=== PATIENT | female | born 1965 | race Caucasian/White ===

== ENCOUNTER → 2024-09-26 | Outpatient (CLI) | payer MEDICARE, MEDICAID, SELFPAY ==
[2024-09-26 13:38] LABS: Basophils # (Auto) 0.1 Thou/mm3 (0.0-0.2); Basophils % (Auto) 1 % (0-2.5); Eosinophils # (Auto) 0.2 Thou/mm3 (0.0-0.5); Eosinophils % (Auto) 3 % (0-10); Hematocrit 26.5 % (36.0-46.0); Immature Granulocytes % (Auto) 1 % (0-0); Immature Granulocytes Auto 0.05 Thou/mm3 (0.00-0.00); Lymphocytes % (Auto) 28 % (10-50); Mean Corpuscular HGB Conc 32.1 g/dl (31.0-37.0); Mean Corpuscular Hemoglobin 32.7 pg (25.0-35.0); Mean Corpuscular Volume 102 fL (80-100); Monocytes % (Auto) 14 % (0-12); Neutrophils # (Auto) 3.9 Thou/mm3 (1.8-7.7); Neutrophils % (Auto) 54 % (37-80); Nucleated Red Blood Cell % 0 /100 WBC (0); Platelet Count 177 Thou/mm3 (140-440); RDW Standard Deviation 60.4 fL (36.4-46.3); White Blood Count 7.2 Thou/mm3 (3.6-11.0)
[2024-09-26 13:46] LABS: Hemoglobin 8.5 g/dL (12.0-16.0)
[2024-09-26 14:03] LABS: Albumin, Serum 4.5 gm/dL (3.4-4.8); Anion Gap 7 (7-16); BUN/Creatinine Ratio 21 Ratio (12-20); Blood Urea Nitrogen 58 mg/dL (9-23); Calcium 9.8 mg/dL (8.3-10.6); Calcium (Corrected) 9.8 mg/dL (8.5-10.1); Chloride 108 mMol/L (98-107); Creatinine (Component) 2.8 mg/dL (0.6-1.3); Glucose 103 mg/dL (74-106); Osmolality,Calculated 295 (275-295); Phosphorous 4.7 mg/dL (2.4-5.1); Potassium 4.9 mMol/L (3.4-5.1); Sodium 140 mMol/L (136-145); eGFR 19 See Note
== END | disposition home or self-care (01) ==
PROVIDERS: PCP Internal Medicine; Referring Provider Internal Medicine; Visit Provider Internal Medicine
DX: I12.9 Hypertensive chronic kidney disease with stage 1 through stage 4 chronic kidney disease, or unspecified chronic kidney disease (principal); E11.22 Type 2 diabetes mellitus with diabetic chronic kidney disease; N18.31 Chronic kidney disease, stage 3a; E11.21 Type 2 diabetes mellitus with diabetic nephropathy; R31.9 Hematuria, unspecified; R80.9 Proteinuria, unspecified
CPT/HCPCS: 36415; 80069; 85025

== ENCOUNTER → 2024-12-01 | Outpatient (CLI) | payer MEDICARE, MEDICAID, SELFPAY ==
[2024-12-01 16:37] LABS: Albumin, Serum 4.2 gm/dL (3.4-4.8); Anion Gap 8 (7-16); BUN/Creatinine Ratio 23 Ratio (12-20); Blood Urea Nitrogen 43 mg/dL (9-23); Calcium 9.8 mg/dL (8.3-10.6); Calcium (Corrected) 9.8 mg/dL (8.5-10.1); Carbon Dioxide 28.3 mMol/L (20.0-31.0); Chloride 110 mMol/L (98-107); Creatinine (Component) 1.9 mg/dL (0.6-1.3); Glucose 74 mg/dL (74-106); Osmolality,Calculated 300 (275-295); Phosphorous 3.8 mg/dL (2.4-5.1); Potassium 4.3 mMol/L (3.4-5.1); Sodium 146 mMol/L (136-145); eGFR 30 See Note
== END | disposition home or self-care (01) ==
LOC: COPL 15:00
PROVIDERS: PCP Family Medicine; Referring Provider Internal Medicine; Visit Provider Internal Medicine
DX: I12.9 Hypertensive chronic kidney disease with stage 1 through stage 4 chronic kidney disease, or unspecified chronic kidney disease (principal); E11.22 Type 2 diabetes mellitus with diabetic chronic kidney disease; N18.31 Chronic kidney disease, stage 3a; E11.21 Type 2 diabetes mellitus with diabetic nephropathy; R80.9 Proteinuria, unspecified
CPT/HCPCS: 36415; 80069

== ENCOUNTER 2025-04-08 12:12 | Inpatient (IN) | payer MEDICARE, MEDICAID, SELFPAY ==
[2025-04-08] VITALS (7 sets, daily range): BP systolic 73–123; BP diastolic 46–76; PULSE 61–83; RESP 15–94; TEMP 36.4–36.6; O2SAT 92–94; BMI 31.5
--- NOTE | 2025-04-08 12:36 | XR_ITS ---
Examination: AP chest single view Technique one AP portable upright chest single view Date and time: April 08, 2025 at 1307 hours Comparison April 11, 2024 INDICATIONS: Fever chills beginning 5 days ago. FINDINGS: Mild enlargement left ventricle Moderate vascular congestion. No lobar pneumonia Moderate elevation right hemidiaphragm IMPRESSION: Moderate vascular congestion No lobar pneumonia
--- NOTE | 2025-04-08 12:36 | EKG_ITS ---
[facility] Test Date: 2025-04-08 Pat Name: FELIPE BILLY Department: Room: - Gender: Female Probation Officer: : 1965 Requested By: Joshua Fenton (KENDALL) Order Number: [id number] Reading MD: Joshua Fenton (SKIN CARE TECHNICIAN) Measurements Intervals [place] Rate: 72 P: 23 MI: 231 QRS: 12 QRSD: 160 T: -12 QT: 426 QTc: 467 Interpretive Statements SINUS RHYTHM WITH FIRST DEGREE AV BLOCK RIGHT BUNDLE BRANCH BLOCK [120+ ms QRS DURATION, UPRIGHT V1, 40+ ms S IN I/aVL/V4/V5/V6] MODERATE T-WAVE ABNORMALITY, CONSIDER LATERAL ISCHEMIA [-0.1+ mV T-WAVE IN I/aVL/V5/V6] Compared to ECG 04/11/2024 09:37:12 First degree AV block now present Atrial fibrillation no longer present T-wave abnormality still present Possible ischemia still present /store/S0/[id number]/ecg/[id number].pdf
--- NOTE | 2025-04-08 12:45 | PC.NURSE ---
Patient from [facility] and taken to room 2 with care provider at bedside, patient to er sent by pmd for BLACK TARRY STOOL , FEVER, CHILLS, ABD PAIN x 5 days, patient develop mentally delayed, care provider, anna at bedside, Patient had low bp in [facility]. Patient placed in [facility] and on CM, IV attempts by RN's at bedside at this time.
--- NOTE | 2025-04-08 12:49 | PC.NURSE ---
Dr. Gottlieb at bedside to assess patient.
[2025-04-08] MEDS: SODIUM CHLORIDE 0.9% 1000 ML 1,000 ML 999 ML IV ×2 (12:55→16:07)
--- NOTE | 2025-04-08 12:56 | PD.EDADULT ---
ED General RME/HPI General Chief complaint: GI Bleed Stated complaint: BLACK TARRY STOOL , FEVER, CHILLS Time Seen by Provider: 04/08/25 12:19 Arrival date/time: 04/08/25 12:12 RME / HPI RME / HPI narrative: DR. GOTTLIEB MAIN ED EVALUATION: 59 year old female presents to the Emergency Department brought in by the retail stock clerk from a half-way with complaints of dark tarry stools/ GI bleed and abdominal pain. Symptoms are moderate. Associated symptoms include nausea, vomiting, fevers, and chills. Patient is on hospice. Patient is hypotensive here at 69/57. PMHx: Recurrent hospitalizations for pneumonia: 04/07/2024-04/10/2024 (Pneumonia/UTI), 03/22/2024-03/23/2024 (Pneumonia), 11/18/2023-11/19/2023 (Pneumonia), 11/02/2023-11/05/2023 (COVID Pneumonia), asthma, primary hypertension, hyperlipidemia, type 2 diabetes (10/2023 A1c 5.6), CKD stage III, chronic anemia, gout, GERD, gastritis, hiatal hernia, cholelithiasis, non-alcoholic fatty liver disease, and idiopathic bladder hemorrhage. Social Hx: No tobacco, alcohol, or substance use. Related Data Home Medications ?Medication ?Instructions ?Recorded ?Confirmed allopurinol 100 mg tablet 100 mg PO QDAY #30 tabs 03/31/14 04/12/24 (Zyloprim) docusate sodium 100 mg capsule 100 mg PO BID #60 caps 03/31/14 04/12/24 (Colace) montelukast 10 mg tablet 10 mg PO HS #30 tabs 03/31/14 04/12/24 (Singulair) potassium chloride 8 mEq 8 meq PO QDAY ##30 03/31/14 04/12/24 capsule,extended release quetiapine 50 mg tablet (Seroquel) 50 mg PO HS #30 tabs 03/31/14 04/12/24 linagliptin 5 mg tablet (Tradjenta) 5 mg PO QAM ##0 03/07/17 04/12/24 loratadine 10 mg tablet 10 mg PO QDAY 04/17/19 04/12/24 lovastatin 40 mg tablet 40 mg PO QPM 04/17/19 04/12/24 vitamin B complex-vitamin C-folic 1 tab PO QAM 04/17/19 04/12/24 acid 0.8 mg tablet (Janae-Steven) cholecalciferol (vitamin D3) 125 5,000 unit PO QDAY 04/04/23 04/12/24 mcg (5,000 unit) tablet (Vitamin D3) furosemide 20 mg tablet (Lasix) 20 mg PO QDAY 11/03/23 04/12/24 ferrous sulfate 325 mg (65 mg 325 mg PO QDAY 11/04/23 04/12/24 iron) tablet lisinopril 40 mg tablet 40 mg PO QDAY 11/04/23 04/12/24 metformin 500 mg tablet 500 mg PO QPM 11/19/23 04/12/24 L.acidophil-L.casei-B.bifid-B.longum-FOS 1 cap PO QDAY 03/23/24 04/12/24 2 billion cell-50 mg capsule (Probiotic Blend) amlodipine 10 mg tablet 10 mg PO DAILY 03/23/24 04/12/24 carbamazepine 100 mg 100 mg PO BID 03/23/24 04/12/24 capsule,extended release [id number] famotidine 40 mg tablet (Pepcid) 40 mg PO QDAY 03/23/24 04/12/24 guaifenesin 600 mg tablet, 600 mg PO BID PRN CHEST CONGESTION 04/11/24 04/11/24 extended release 12 hr (Mucinex) amoxicillin 875 mg-potassium 1 tab PO BID 04/12/24 04/12/24 clavulanate 125 mg tablet Previous Rx's ?Medication ?Instructions ?Recorded pantoprazole 40 mg tablet,delayed 40 mg PO QDAY #30 tabs 11/20/23 release carvedilol 6.25 mg tablet 6.25 mg PO BID #60 tabs 03/23/24 metoclopramide HCl 10 mg tablet 10 mg PO HS 30 days #30 tabs 04/17/24 metoclopramide HCl 5 mg tablet 5 mg PO QAM 30 days #30 tabs 04/17/24 Allergies Allergy/AdvReac Type Severity Reaction Status Date / Time No Known Allergies Allergy Verified 04/08/25 12:16 Review of Systems Review of Systems Systems Reviewed: All systems reviewed, normal except as documented Narrative Review of Systems: Constitutional: DENIES: fevers; Eyes: DENIES: loss of vision; Head/Ear/Nose: DENIES: loss of hearing. Throat: DENIES: dysphagia. Cardiovascular: DENIES: chest pain, dyspnea, or syncope. Respiratory: DENIES: shortness of breath; Gastrointestinal: POSITIVES: dark tarry stools/ GI bleed, abdominal pain, nausea, vomiting, fevers, chills Genitourinary: DENIES: dysuria (painful or difficult urination); Musculoskeletal: DENIES: arthralgia (pain in a joint); Skin: DENIES: rash; Neurological: DENIES: loss of function or movement; Psychiatric: DENIES: recent major life stressor, emotional problem, illicit drug use or abuse; Endocrinology: DENIES: weight change,; Hematologic/Lymphatic: DENIES: abnormal bruising. Allergic/Immunologic: DENIES: urticaria (hives). Past Medical History Past Medical History CARDIAC: Positive Cardiac Disorders, Hypercholesterolemia, Congestive Heart Failure, Edema and Hypertension RESPIRATORY: Positive Asthma and Pneumonia GASTROINTESTINAL: Positive Gastroesophageal Reflux Disease GENITOURINARY: Positive Genitourinary Disorders and Renal Disease MUSCULOSKELETAL: Positive Arthritis, Osteoporosis and Gout ENDOCRINE: Positive Diabetes Mellitus Type 2 HEMATOLOGIC: Positive Anemia OTHER HISTORY: Positive Hospitalization, Down Syndrome, Developmental Delay and Cancer Family History FAMILY HISTORY: Positive Family Cardiac Disorders and Family Cancer Surgical History SURGICAL: Positive Endocrine Surgery and Hysterectomy Social History SMOKING STATUS: Never smoker SUBSTANCE USE: does not use ALCOHOL: Never ED Exam Narrative Physical exam: Physical Exam: General: The vital signs were reviewed. Patient initially hypotensive with systolics in the 70 and 80 range on arrival the patient is non-toxic, in no apparent distress and appears healthy with a patent airway, no respiratory distress and has no apparent circulatory problems. Head & Scalp: Normocephalic, atraumatic. Face: Appears normal and is without lesions, deformity. Ears: Left external pinna appears normal. Right external pinna appears normal. Eyes: The sclera is anicteric. No obvious photophobia. The Left and Right Orbit/Lid/Conjunctiva appears normal without swelling, discoloration or injection. Nose: The nose is without deformity, discharge or tenderness; Throat: Appears normal. The mucous membranes are pink and moist without exudates, redness or mass seen. The tongue appears normal. Neck: The neck is supple and no apparent mass or adenopathy. Chest: The chest wall is normal in size and symmetry and has no chest wall tenderness or crepitus. The patient displays normal ventilator effort without retractions, accessory muscle use and has adequate air movement bilaterally with no wheezes and no rales. Cardiovascular: Regular rate and rhythm; No murmurs, rubs, or gallops; Gastrointestinal: The abdomen appears normal. No obvious hernias or mass. The abdomen is soft and benign, non-distended, with no pain, no guarding and no rebound tenderness. Bowel sounds are present and normal sounding. No CVA tenderness. Genitourinary: Rectal inspection is normal there is black discoloration rectal exam was done there is no mass melanotic appearing and guaiac positive. Back/Spine: Normal inspection Extremities/Musculoskeletal/lymphatic: The bilateral upper and lower extremities are warm. There is no evidence of arterial insufficiency. There is no evidence of venous insufficiency/edema. The patient spontaneously moves bilateral upper and lower extremities with no pain and no limitation of movement. There is no apparent, injury or trauma. Skin: The skin is warm, dry and intact. No rashes. No petechia. No purpura. No abnormal bruising. The color is appropriate with no cyanosis. Mental status/Psychiatric: Mental status is appropriate for age. The patient has no apparent delusions, visual hallucinations, no apparent audible hallucinations. The patient has no apparent suicidal thoughts/ideation and no apparent homicidal thoughts/ideation. Neurological: The patient is awake, alert, interactive, cordial, cooperative and usual self whose development delayed but is smiles and cordial and interacts with her caregiver The patient follows commands and answers historical question with no impairment. There is no visual disturbance apparent. The pupils are equal and reactive bilaterally with normal eye movements and no diplopia The bilateral upper and lower extremities have normal strength, normal range of motion and normal functioning. The gait, station and balance not tested due to acuity Course Quality Measures none Orders Category Date Time Status Admit to Inpatient Status Routine Admission 04/08/25 15:13 Active Patient Condition Routine Admission 04/08/25 15:12 Ordered Bedside COVID-19 Antigen Test NOW Care 04/08/25 12:36 Active Bedside Influenza A&B Antigen Test NOW Care 04/08/25 12:36 Completed Aviation Electronic Warfare Operator Q4H START 00 Care 04/08/25 12:51 Active EKG (ED ONLY) *Do not use* NOW Care 04/08/25 12:36 Completed Flu & Pneumonia Vaccine Screen ONCE Care 04/08/25 15:12 Active In and Out Catheter X1 Care 04/08/25 12:58 Active Insert IV NOW Care 04/08/25 12:36 Active Notify provider NEEDED Care 04/08/25 15:12 Active Consult to Gastroenterology Stat Cons 04/08/25 14:45 Ordered Diet Low Sodium (2gm) Diet 04/08/25 Dinner Active EKG (ED Only) Stat Exams 04/08/25 12:36 Draft XR chest 1V portable Stat Exams 04/08/25 12:36 Completed B-Type Natriuretic Peptide Stat Lab 04/08/25 13:00 Completed Blood Culture (Lab) Stat Lab 04/08/25 13:15 Received CBC AM DRAW Lab 04/09/25 05:00 Ordered CBC AM DRAW Lab 04/10/25 05:00 Ordered CBC AM DRAW Lab 04/11/25 05:00 Ordered CBC AM DRAW Lab 04/12/25 05:00 Ordered CBC AM DRAW Lab 04/13/25 05:00 Ordered CBC Stat Lab 04/08/25 13:00 Completed CBC Stat Lab 04/08/25 14:26 Completed Comprehensive Metabolic Panel AM DRAW Lab 04/09/25 05:00 Ordered Comprehensive Metabolic Panel AM DRAW Lab 04/10/25 05:00 Ordered Comprehensive Metabolic Panel AM DRAW Lab 04/11/25 05:00 Ordered Comprehensive Metabolic Panel AM DRAW Lab 04/12/25 05:00 Ordered Comprehensive Metabolic Panel AM DRAW Lab 04/13/25 05:00 Ordered Comprehensive Metabolic Panel Stat Lab 04/08/25 13:00 Completed Lactate (Lactic Acid) Stat Lab 04/08/25 13:00 Completed Lipase Stat Lab 04/08/25 13:00 Completed Magnesium AM DRAW Lab 04/09/25 05:00 Ordered Magnesium AM DRAW Lab 04/10/25 05:00 Ordered Magnesium AM DRAW Lab 04/11/25 05:00 Ordered Magnesium AM DRAW Lab 04/12/25 05:00 Ordered Magnesium AM DRAW Lab 04/13/25 05:00 Ordered Occult Blood, Stool (LAB) Stat Lab 04/08/25 15:05 Ordered PT [Prothrombin Time with INR] Stat Lab 04/08/25 13:00 Completed PTT [Partial Thromboplastin Time] Stat Lab 04/08/25 13:00 Completed Phosphorous AM DRAW Lab 04/09/25 05:00 Ordered Phosphorous AM DRAW Lab 04/10/25 05:00 Ordered Phosphorous AM DRAW Lab 04/11/25 05:00 Ordered Phosphorous AM DRAW Lab 04/12/25 05:00 Ordered Phosphorous AM DRAW Lab 04/13/25 05:00 Ordered Procalcitonin Stat Lab 04/08/25 13:00 Completed Sputum Culture and Gram Stain Routine Lab 04/08/25 15:28 Received Thyroid Stimulating Hormone AM DRAW Lab 04/09/25 05:00 Ordered Troponin I Stat Lab 04/08/25 13:00 Completed Type and Screen Stat Lab 04/08/25 13:00 Completed Urinalysis Stat Lab 04/08/25 16:30 Completed Urine Culture Stat Lab 04/08/25 15:05 Received VBG [Venous Blood Gas] Stat Lab 04/08/25 13:00 Completed Acetaminophen Tab [Tylenol Tab] Med 04/08/25 15:12 Active 1,000 mg PO Q6H PRN Acetaminophen Tab [Tylenol Tab] Med 04/08/25 15:12 Active 650 mg PO Q6H PRN Azithromycin Inj [Zithromax Inj] 500 mg Med 04/09/25 09:00 Pending Sodium Chloride 0.9% 250 ml [Ns] 250 ml IV QDAY Docusate Sod [Colace] Med 04/09/25 09:00 Active 100 mg PO QDAY Enoxaparin [Lovenox] Med 04/09/25 09:00 Active 40 mg SC QDAY Ondansetron Inj [Zofran Inj] Med 04/08/25 15:12 Active 4 mg IV Q6H PRN Pantoprazole Inj [Protonix Inj] Med 04/09/25 09:00 Active 40 mg IVP QDAY Pantoprazole Inj [Protonix Inj] Med 04/08/25 14:44 Discontinued 40 mg IVP X1 ONE Senna [Senokot] Med 04/09/25 09:00 Active 1 tab PO QDAY Sodium Chloride 0.9% 1000 ml [Ns] 1,000 ml Med 04/08/25 12:36 Discontinued IV 999 mls/hr Sodium Chloride 0.9% 1000 ml [Ns] 1,000 ml Med 04/08/25 12:53 Discontinued IV 999 mls/hr Sodium Chloride Rt Christine 10% [NS Rt Christine 10%] Med 04/08/25 15:12 Discontinued 5 ml INH X1 ONE cefTRIAXone/D5w 1gm IV premix [Rocephin/D5w 1gm IV Med 04/08/25 15:16 Active premix] 1 gm in 50 ml IV QDAY Code Status Routine Oth 04/08/25 15:12 Ordered Oxygen Delivery DAILY RT 04/08/25 15:13 Active Sputum Induction PRN RT 04/08/25 15:30 Ordered Vital Signs Vital signs: Vital Signs Temperature 97.6 F 04/08/25 12:31 Pulse Rate 61 04/08/25 12:31 Respiratory Rate 18 04/08/25 12:31 Blood Pressure 73/46 L 04/08/25 12:31 Pulse Oximetry (%) 92 L 04/08/25 12:31 Oxygen Delivery Method Room Air 04/08/25 12:31 Critical Care Time Critical Care Time Critical Care Time: Yes Total Critical Care Time (min.): 45 Attestation: The high probability of sudden, clinically significant deterioration in the patient?s condition required the highest level of my preparedness to intervene urgently. The services I provided to this patient were to treat and/or prevent clinically significant deterioration. Services included the following: chart data review, reviewing nursing notes and/or old charts, documentation time, framing consultant collaboration regarding findings and treatment options, medication orders and management, direct patient care, vital sign assessments and ordering, interpreting and reviewing diagnostic studies and lab tests. Aggregate critical care time includes only time during which I was engaged in work directly related to the patient?s care, as described above, whether at bedside or elsewhere in the Emergency Department. It did not include time spent performing other reported procedures or the services of residents, students, nurses or physician assistants. Discharge Plan Plan Patient Disposition: Admit Acute Care w/in Hospital Discharge Disposition comment: Hospitalist to admit Dr. Peterson to consult Problem List Clinical Impression: Acute renal failure, GI (gastrointestinal bleed), Developmental delay, mild MDM Narrative MDM hospital course: I, Kim Moreno, am scribing for and in the presence of Dr. Gottlieb. The patient is 59-year-old developmentally delayed who comes in hypotensive passing black stools for several days with no known history fever injury or trauma. She has a history of upper endoscopy past year for esophageal stricture with Dr. Peterosn. Rectal exam today reveals dark stool guaiac positive on the card. Patient has labs today has a chronic anemia but her hemoglobin is little bit lower than baseline at 8.5 there is a second H&H pending at this time. PT/INR within normal limits venous blood gas pH is 747 pCO2 of 30 electrolytes are within normal except the potassium is low at 3.3 kidney functions worse at BUN 45 creatinine 4.0 consistent with acute renal failure lactic acid is 1.3 procalcitonin is elevated 8.02. Chest x-ray has no obvious pneumonia heart is a little enlarged. She is alert awake smiling. She had no more melanotic stool while she was here blood pressures came up into the 100 after liter of fluid. Contact Dr. Peterson and he will be consulting for gastroenterology spoke with Dr. Garcia the resident on-call and they will be admitting for hypotension and acute kidney injury. Clinical Information Provided by patient other: caregiver Medical Records Reviewed [facility] (Reviewed last admission discharge dated 04/18/24, patient admitted for the following: Cognitive developmental delay.) Meds/Rx Considered, not Ordered None Labs/Rad/Tests considered, not Ordered None Chronic Illness/Social Conditions Add or document further as needed: Recurrent hospitalizations for pneumonia: 04/07/2024-04/10/2024 (Pneumonia/UTI), 03/22/2024-03/23/2024 (Pneumonia), 11/18/2023-11/19/2023 (Pneumonia), 11/02/2023-11/05/2023 (COVID Pneumonia), asthma, primary hypertension, hyperlipidemia, type 2 diabetes (10/2023 A1c 5.6), CKD stage III, chronic anemia, gout, GERD, gastritis, hiatal hernia, cholelithiasis, non-alcoholic fatty liver disease, and idiopathic bladder hemorrhage. EKG Interpretation EKG #1: Date/time of EK04/08/25 1352 hours EKG interpretation: Interpreted by me: sinus rhythm, rate 72, no STEMI Lab Interpretation Labs: see narrative above Imaging Imaging interpretation: see narrative above Radiology reports / interpretation(s): Procedure(s): XR chest 1V portable Accession Number(s): [id number] cc: Eliceo (KENDALL),Joshua ARGUETA; Hector Escalante MD~ Examination: AP chest single view Technique one AP portable upright chest single view Date and time: April 08, 2025 at 1307 hours Comparison April 11, 2024 INDICATIONS: Fever chills beginning 5 days ago. FINDINGS: Mild enlargement left ventricle Moderate vascular congestion. No lobar pneumonia Moderate elevation right hemidiaphragm IMPRESSION: Moderate vascular congestion No lobar pneumonia Dictated By: Hector Escalante MD Medication Administration(s) Medication Administration History Acetaminophen (Acetaminophen 325 Mg Tablet) 650 mg PO Q6H PRN PRN Reason: Fever >101.5 Stop: 05/08/25 15:11 Acetaminophen (Acetaminophen 325 Mg Tablet) 1,000 mg PO Q6H PRN PRN Reason: PAIN SCALE 1-3 (mild Stop: 05/08/25 15:11 Dextrose (Dextrose 50%-Water Inj 50 Ml Syringe) 25 ml IV Q15MIN PRN PRN Reason: BG 50-70 responsive npo pt Stop: 05/08/25 15:18 Dextrose (Dextrose 50%-Water Inj 50 Ml Syringe) 50 ml IV Q15MIN PRN PRN Reason: BG <50 OR BG <70 & pt unresponsive Stop: 05/08/25 15:18 Docusate Sodium (Docusate Sod 100 Mg Capsule) 100 mg PO QDAY LANDON; Protocol Stop: 05/09/25 08:59 Enoxaparin Sodium (Enoxaparin Sod Inj 40 Mg/0.4 Ml Syringe) 40 mg SC QDAY LANDON Stop: 04/23/25 08:59 Glucagon (Glucagon Inj 1 Mg Vial) 1 mg IM Q15MIN PRN PRN Reason: BG <70, and no IV access Ceftriaxone Sodium/Dextrose (Rocephin/D5w 1gm Iv Premix) 1 gm in 50 mls @ 100 mls/hr IV QDAY LANDON Stop: 04/15/25 15:15 Last Infusion: 04/08/25 16:45 Dose: Infused Documented By: Admin: 04/08/25 16:10 Dose: 100 mls/hr Documented By: DARSHAN Azithromycin 500 mg/ Sodium (Chloride) 250 mls @ 250 mls/hr IV QDAY LANDON Stop: 04/16/25 08:59 Sodium Chloride (Ns) 1,000 mls @ 60 mls/hr IV .[id number] LANDON Stop: 04/09/25 08:15 Insulin Human Lispro (Insulin Lispro (Admelog) 1 Unit/0.01 Ml Unit) 0 unit SC AC LANDON; Protocol Stop: 05/08/25 16:59 Ondansetron HCl (Ondansetron Inj 2 Mg/Ml Inj 2 Ml) 4 mg IV Q6H PRN; Protocol PRN Reason: NAUSEA OR VOMITING Stop: 05/08/25 15:11 Pantoprazole Sodium (Pantoprazole Inj 40 Mg Vial) 40 mg IVP QDAY LANDON Stop: 05/09/25 08:59 Sennosides (Senna Tablet) 1 tab PO QDAY LANDON; Protocol Stop: 05/09/25 08:59 Discontinued Medications Sodium Chloride (Ns) 1,000 mls @ 999 mls/hr IV .Q1H1M ONE Stop: 04/08/25 13:36 Last Infusion: 04/08/25 14:07 Dose: Infused Documented By: Admin: 04/08/25 12:55 Dose: 999 mls/hr Documented By: DARSHAN Sodium Chloride (Ns) 1,000 mls @ 999 mls/hr IV .Q1H1M ONE Stop: 04/08/25 13:53 Last Admin: 04/08/25 13:41 Dose: Not Given Documented By: DARSHAN Non-Admin Reason: Cancelled by Provider Sodium Chloride (Ns) 1,000 mls @ 999 mls/hr IV .Q1H1M ONE Stop: 04/08/25 16:18 Last Infusion: 04/08/25 17:25 Dose: Infused Documented By: Admin: 04/08/25 16:07 Dose: 999 mls/hr Documented By: DARSHAN Azithromycin 500 mg/ Sodium (Chloride) 250 mls @ 250 mls/hr IV X1 ONE Stop: 04/08/25 16:29 Pantoprazole Sodium (Pantoprazole Inj 40 Mg Vial) 40 mg IVP X1 ONE Stop: 04/08/25 14:45 Last Admin: 04/08/25 16:05 Dose: 40 mg Documented By: DARSHAN Sodium Chloride (Sodium Chloride Rt 10% 15 Ml Nebu) 5 ml INH X1 ONE Stop: 04/08/25 15:13 Last Admin: 04/08/25 16:16 Dose: Not Given Documented By: SHENA Non-Admin Reason: Other, see note Consultations/Discussions re: Management Consult #1: Date/time: 04/08/25 2:43 pm Physician, specialty, service, details: Discussed test HPI, PMHx, lab, radiology results and/or management with Dr. Peterson. Will consult an admission to the hospitalist. Consult #2: Date/time: 04/08/25 2:50 pm Physician, specialty, service, details: Discussed test HPI, PMHx, lab, radiology results and/or management with resident working with the hospitalist. Will admit for further evaluation and management. Accepts patient for admission. Diagnosis Differential diagnosis: sepsis, upper GI bleed, lower GI bleed Most likely dx, and/or detailed dx discussion: Acute renal failure GI bleed Developmental delay, mild Dispositon Disposition: Admit
[2025-04-08 13:12] LABS: Base Excess, Venous -2 (-3-3); Lactate (Lactic Acid) 1.3 mMol/L (0.4-2.0); O2 Saturation, Venous 99 % (96-97); PCO2, Venous 30 mmHg (36-56); PO2, Venous 100 mmHg (15-58); pH, Venous 7.47 (7.33-7.66)
[2025-04-08 13:14] LABS: Basophils % (Auto) 0 % (0-2.5); Eosinophils % (Auto) 0 % (0-10); Hematocrit 26.3 % (36.0-46.0); Hemoglobin 8.9 g/dL (12.0-16.0); Immature Granulocytes % (Auto) 1 % (0-0); Immature Granulocytes Auto 0.09 Thou/mm3 (0.00-0.00); Lymphocytes # (Auto) 1.1 Thou/mm3 (1.0-4.8); Lymphocytes % (Auto) 11 % (10-50); Mean Corpuscular HGB Conc 33.8 g/dl (31.0-37.0); Mean Corpuscular Hemoglobin 31.9 pg (25.0-35.0); Mean Corpuscular Volume 94 fL (80-100); Monocytes # (Auto) 1.3 Thou/mm3 (0.0-0.8); Monocytes % (Auto) 14 % (0-12); Neutrophils # (Auto) 7.2 Thou/mm3 (1.8-7.7); Neutrophils % (Auto) 74 % (37-80); Nucleated Red Blood Cell % 0 /100 WBC (0); Platelet Count 211 Thou/mm3 (140-440); RDW Standard Deviation 54.6 fL (36.4-46.3); Red Blood Count 2.79 Miln/mm3 (4.00-5.20); White Blood Count 9.7 Thou/mm3 (3.6-11.0)
[2025-04-08 13:32] LABS: Partial Thromboplastin Time 30.8 Seconds (22.0-36.0); Prothrombin Time 11.3 Seconds (9.0-12.2)
[2025-04-08 13:50] LABS: B-Type Natriuretic Peptide 40 pg/mL (0-100)
[2025-04-08 14:08] LABS: Alanine Aminotransferase 16 U/L (10-49); Albumin, Serum 3.9 gm/dL (3.4-4.8); Albumin/Globulin Ratio 1.3 (1.2-2.2); Alkaline Phosphatase 59 U/L (46-116); Anion Gap 13 (7-16); Aspartate Amino Transferase 20 U/L (0-34); BUN/Creatinine Ratio 11 Ratio (12-20); Bilirubin,Total < 0.2 mg/dL (0.3-1.2); Blood Urea Nitrogen 45 mg/dL (9-23); Calcium 9.1 mg/dL (8.3-10.6); Calcium (Corrected) 9.2 mg/dL (8.5-10.1); Chloride 105 mMol/L (98-107); Estimated Creatinine Clearance 14.9 mL/min (>60); Globulin 2.9 gm/dL (2.3-3.5); Glucose 87 mg/dL (74-106); Lipase 38 U/L (12-53); Osmolality,Calculated 295 (275-295); Potassium 3.3 mMol/L (3.4-5.1); Procalcitonin 8.02 ng/ml (0.0-0.49); Sodium 143 mMol/L (136-145); Total Protein 6.8 gm/dL (5.7-8.2); Troponin I 0.029 ng/mL (0.0-0.045); eGFR 12 See Note
[2025-04-08 14:38] LABS: Basophils % (Auto) 0 % (0-2.5); Eosinophils % (Auto) 0 % (0-10); Immature Granulocytes % (Auto) 1 % (0-0); Immature Granulocytes Auto 0.09 Thou/mm3 (0.00-0.00); Lymphocytes # (Auto) 1.1 Thou/mm3 (1.0-4.8); Lymphocytes % (Auto) 13 % (10-50); Mean Corpuscular HGB Conc 33.8 g/dl (31.0-37.0); Mean Corpuscular Hemoglobin 32.1 pg (25.0-35.0); Mean Corpuscular Volume 95 fL (80-100); Monocytes # (Auto) 1.2 Thou/mm3 (0.0-0.8); Monocytes % (Auto) 14 % (0-12); Neutrophils # (Auto) 6.2 Thou/mm3 (1.8-7.7); Neutrophils % (Auto) 72 % (37-80); Nucleated Red Blood Cell % 0 /100 WBC (0); Platelet Count 194 Thou/mm3 (140-440); RDW Standard Deviation 54.2 fL (36.4-46.3); Red Blood Count 2.52 Miln/mm3 (4.00-5.20); White Blood Count 8.6 Thou/mm3 (3.6-11.0)
[2025-04-08 14:58] LABS: Hemoglobin 8.1 g/dL (12.0-16.0)
--- NOTE | 2025-04-08 15:25 | PD.RESHP ---
Documentation for date of: 04/08/25 HPI History of Present Illness Chief complaint: fever History of present illness: 59-year-old female on hospice with past medical history of developmental delay, asthma, hypertension, hyperlipidemia, type 2 diabetes, CKD seen by Dr. Mendez, chronic anemia, gout, GERD history of recurrent pneumonias and UTIs who presented to the ED due to fever chills. Per the caregiver patient was having fevers a couple days ago and hospice agency put the patient on Bactrim. Subsequently patient continued to have fevers and watery diarrhea (nonbloody) and went to her PCP was told her blood pressure was low and brought here to the ER. Denies chest pain, shortness of breath, nausea, vomiting, recent travel, sick contact. f ED course: ED vitals: BP 73/46, HR 61, RR 18, O2 sat 92% on room air ED labs: Normocytic anemia, hypokalemia, BUN 45, creatinine 4.0, GFR 12, procalcitonin 8.0 EKG shows sinus rhythm, chest x-ray shows vascular congestion no lobar pneumonia PMHx: As above SX Hx: None Social Hx: Denies cigarette use, denies alcohol use, denies illicit substances including THC FH X: Unknown Review of Systems Review of Systems Systems Reviewed: All systems reviewed, normal except as documented Narrative Review of Systems: all 12 systems reviewed and are normal unless stated in the HPI Exam Vital Signs Temp Pulse Resp BP Pulse Ox O2 Del Method 97.6 F 72 24 H 102/57 L 94 L Room Air 04/08/25 12:31 04/08/25 13:30 04/08/25 13:30 04/08/25 13:30 04/08/25 13:30 04/08/25 13:30 Narrative Exam Physical Exam GENERAL: NAD, AAOx3, developmentally delayed HEENT: Moist mucosa. Eyes open, symmetrical, & clear CARDIO: Heart RRR, no obvious murmurs PULM: Coughing, decreased breath sounds on the left GI: Abdomen soft, nondistended, no pain on palpation. BSx4 SKIN/MSK/EXT: No wounds/rashes/edema/amputations, no pain on palpation. Pedal pulses present B/L NEURO: AAOx3, no focal neuro deficits, able to move all 4 extremities Results: Labs 04/09/25 08:22 04/09/25 08:22 Labs: Short CBC 04/08/25 04/08/25 Range/Units 13:00 14:26 WBC 9.7 8.6 (3.6-11.0) Thou/mm3 Hgb 8.9 L 8.1 L (12.0-16.0) g/dL Hct 26.3 L 24.0 L (36.0-46.0) % Plt Count 211 194 (140-440) Thou/mm3 BMP 04/08/25 13:00 Sodium 143 Potassium 3.3 L Chloride 105 Carbon Dioxide 25.0 BUN 45 H Creatinine 4.0 H Glucose 87 Calcium 9.1 Cardiac Enzymes 04/08/25 Range/Units 13:00 Troponin I 0.029 (0.0-0.045) ng/mL Liver Function 04/08/25 Range/Units 13:00 Total Bilirubin < 0.2 L (0.3-1.2) mg/dL AST 20 (0-34) U/L ALT 16 (10-49) U/L Alkaline Phosphatase 59 (46-116) U/L Albumin 3.9 (3.4-4.8) gm/dL ABG Interpretation ABG results: 04/08/25 13:00 VBG pH 7.47 VBG pCO2 30 L VBG pO2 100 H VBG Base Excess -2 Quality Measures Quality Measures none Medications Home Medications and Allergies Home Medications ?Medication ?Instructions ?Recorded ?Confirmed ?Type allopurinol 100 mg tablet 100 mg PO QDAY gout #30 tabs 03/31/14 04/08/25 History (Zyloprim) docusate sodium 100 mg capsule 100 mg PO BID #60 caps 03/31/14 04/08/25 History (Colace) montelukast 10 mg tablet 10 mg PO HS #30 tabs 03/31/14 04/08/25 History (Singulair) quetiapine 50 mg tablet (Seroquel) 50 mg PO HS #30 tabs 03/31/14 04/08/25 History linagliptin 5 mg tablet (Tradjenta) 5 mg PO QAM ##0 03/07/17 04/08/25 History loratadine 10 mg tablet 10 mg PO QDAY 04/17/19 04/08/25 History lovastatin 40 mg tablet 40 mg PO QPM 04/17/19 04/08/25 History vitamin B complex-vitamin C-folic 1 tab PO QAM 04/17/19 04/08/25 History acid 0.8 mg tablet (Janae-Steven) cholecalciferol (vitamin D3) 125 5,000 unit PO QDAY 04/04/23 04/08/25 History mcg (5,000 unit) tablet (Vitamin D3) furosemide 20 mg tablet (Lasix) 20 mg PO .QOD water retention,feet 11/03/23 04/08/25 History swelling ferrous sulfate 325 mg (65 mg 325 mg PO HS anemia 11/04/23 04/08/25 History iron) tablet lisinopril 40 mg tablet 40 mg PO QDAY 11/04/23 04/08/25 History metformin 500 mg tablet 500 mg PO QPM 11/19/23 04/08/25 History L.acidophil-L.casei-B.bifid-B.longum-FOS 1 cap PO HS 03/23/24 04/08/25 History 2 billion cell-50 mg capsule (Probiotic Blend) amlodipine 10 mg tablet 10 mg PO DAILY 03/23/24 04/08/25 History carbamazepine 100 mg 100 mg PO BID behaviors 03/23/24 04/08/25 History capsule,extended release [id number] famotidine 40 mg tablet (Pepcid) 40 mg PO QDAY 03/23/24 04/08/25 History acetaminophen 500 mg tablet 1,000 mg PO Q6H PRN pain 04/08/25 04/08/25 History (Acetaminophen Extra Strength) carvedilol 12.5 mg tablet 12.5 mg PO BID 04/08/25 04/08/25 History hyoscyamine sulfate 0.125 mg/mL 0.125 mg PO PRN secretions 04/08/25 04/08/25 History oral drops (Hyosyne) loperamide 2 mg capsule 2 mg PO Q6H PRN diarrhea 04/08/25 04/08/25 History (Anti-Diarrheal (loperamide)) lorazepam 2 mg/mL oral concentrate 0.5 mg PO Q4H PRN agitation 04/08/25 04/08/25 History (Lorazepam Intensol) morphine concentrate 100 mg/5 mL mg 04/08/25 History (20 mg/mL) oral solution ondansetron HCl 4 mg tablet 4 mg PO Q4H PRN nausea and vomiting 04/08/25 04/08/25 History sennosides 8.6 mg-docusate sodium 2 tab-cap PO QDAY 04/08/25 04/08/25 History 50 mg tablet sulfamethoxazole 800 1 tab PO BID 04/08/25 04/08/25 History mg-trimethoprim 160 mg tablet Allergies Allergy/AdvReac Type Severity Reaction Status Date / Time No Known Allergies Allergy Verified 04/08/25 12:16 Visit Medications Acetaminophen (Acetaminophen 325 Mg Tablet) 650 mg PO Q6H PRN PRN Reason: Fever >101.5 Stop: 05/08/25 15:11 Acetaminophen (Acetaminophen 325 Mg Tablet) 1,000 mg PO Q6H PRN PRN Reason: PAIN SCALE 1-3 (mild Stop: 05/08/25 15:11 Dextrose (Dextrose 50%-Water Inj 50 Ml Syringe) 25 ml IV Q15MIN PRN PRN Reason: BG 50-70 responsive npo pt Stop: 05/08/25 15:18 Dextrose (Dextrose 50%-Water Inj 50 Ml Syringe) 50 ml IV Q15MIN PRN PRN Reason: BG <50 OR BG <70 & pt unresponsive Stop: 05/08/25 15:18 Docusate Sodium (Docusate Sod 100 Mg Capsule) 100 mg PO QDAY LANDON; Protocol Stop: 05/09/25 08:59 Enoxaparin Sodium (Enoxaparin Sod Inj 40 Mg/0.4 Ml Syringe) 40 mg SC QDAY LANDON Stop: 04/23/25 08:59 Glucagon (Glucagon Inj 1 Mg Vial) 1 mg IM Q15MIN PRN PRN Reason: BG <70, and no IV access Ceftriaxone Sodium/Dextrose (Rocephin/D5w 1gm Iv Premix) 1 gm in 50 mls @ 100 mls/hr IV QDAY LANDON Stop: 04/15/25 15:15 Azithromycin 500 mg/ Sodium (Chloride) 250 mls @ 250 mls/hr IV QDAY LANDON Stop: 04/16/25 08:59 Sodium Chloride (Ns) 1,000 mls @ 999 mls/hr IV .Q1H1M ONE Stop: 04/08/25 16:18 Azithromycin 500 mg/ Sodium (Chloride) 250 mls @ 250 mls/hr IV X1 ONE Stop: 04/08/25 16:29 Insulin Human Lispro (Insulin Lispro (Admelog) 1 Unit/0.01 Ml Unit) 0 unit SC AC LANDON; Protocol Stop: 05/08/25 16:59 Ondansetron HCl (Ondansetron Inj 2 Mg/Ml Inj 2 Ml) 4 mg IV Q6H PRN; Protocol PRN Reason: NAUSEA OR VOMITING Stop: 05/08/25 15:11 Pantoprazole Sodium (Pantoprazole Inj 40 Mg Vial) 40 mg IVP QDAY LANDON Stop: 05/09/25 08:59 Sennosides (Senna Tablet) 1 tab PO QDAY LANDON; Protocol Stop: 05/09/25 08:59 Discontinued Medications Sodium Chloride (Ns) 1,000 mls @ 999 mls/hr IV .Q1H1M ONE Stop: 04/08/25 13:36 Last Infusion: 04/08/25 14:07 Dose: Infused Sodium Chloride (Ns) 1,000 mls @ 999 mls/hr IV .Q1H1M ONE Stop: 04/08/25 13:53 Last Admin: 04/08/25 13:41 Dose: Not Given Pantoprazole Sodium (Pantoprazole Inj 40 Mg Vial) 40 mg IVP X1 ONE Stop: 04/08/25 14:45 Sodium Chloride (Sodium Chloride Rt 10% 15 Ml Nebu) 5 ml INH X1 ONE Stop: 04/08/25 15:13 Assessment & Plan Plan 59-year-old female on hospice with past medical history of developmental delay, asthma, hypertension, hyperlipidemia, type 2 diabetes, CKD seen by Dr. Mendez, chronic anemia, gout, GERD history of recurrent pneumonias and UTIs who presented to the ED due to fever chills. Per the caregiver patient was having fevers a couple days ago and hospice agency put the patient on Bactrim. Subsequently patient continued to have fevers and watery diarrhea (nonbloody) and went to her PCP was told her blood pressure was low and brought here to the ER. #Fever/chills #Diarrhea #Hypotension Patient having fevers not responding to Bactrim from hospice agency developed diarrhea after course of bactrim Found to have low blood pressure ? 1 L bolus given in the ED ? 1 L bolus ordered ? On ceftriaxone and azithromycin (04/08/2025?) ? IVF for 1 bag ? f/u C.Dif ? Follow-up blood urine and sputum cultures #Acute Kidney injury on CKD Educational Program Director is Dr. Franco ? on IVFs ? Avoid nephrotoxins ? Renally dose medications ? Bladder scan and straight In-N-Out cath as needed #Chronic normocytic anemia Supposedly patient was having dark stools however patient is on iron supplementation chronically, baseline hemoglobin seems to be around 9 ? Transfuse if hemoglobin below 7 ? Monitor CBC ? GI consulted, appreciate recommendations ? On PPI #Hypertension Patient currently hypotensive will resume antihypertensives as tolerated #Diabetes mellitus type 2 Last A1c: 10/2023 A1c 5.6 ? SSI ? Hypoglycemia protocol in place Health Maintenance: Disposition: Med telemetry Fluids: NS Feeding: Cardiac Thrombo prophylaxis: Lovenox Gastric Ulcer prophylaxis: Pantoprazole CODE STATUS: Full code Case discussed with my attending Dr. Iman Nuñez MD PGY-1 Attending Provider Attestation/Addendum 59-year-old female with developmental delay, hypertension, hyperlipidemia, type 2 diabetes mellitus, CKD and previous hospitalization for recurrent pneumonias who presented to the ER with chief complaint of fevers and chills. Of note, patient is on hospice care subsequently hospice agency prescribed the patient on Bactrim with no improvement and subsequently presented to PCP who noted her blood pressure to be low and sent to the ER. In the ER, initial blood pressure 73/46 saturating 92% on room air and subsequently patient will be admitted for hypotension likely related to dehydration causing acute kidney injury superimposed on CKD for which plan to continue IV antibiotic therapy and possible pneumonia for which plan to continue Rocephin and azithromycin. Patient does complain of diarrhea and plan to rule out C. difficile given the patient was on Bactrim.I reviewed above note and agree with findings and plans. I have also personally examined the patient with medicine team and went over assessment and plan with medical team including quality assurance intern and resident physician.
--- NOTE | 2025-04-08 15:34 | PC.RT ---
Sputum sent to lab
[2025-04-08] MEDS: PANTOPRAZOLE INJ 40 MG VIAL IVP (16:05)
[2025-04-08] MEDS: cefTRIAXone/D5w 1gm IV premix 1 GM/50 ML BAG IV (16:10)
[2025-04-08 16:36] LABS: Collection Type, Urine Clean Catch
[2025-04-08 16:43] LABS: Bacteria,Urine 2+; Bilirubin,Urine 1+ (Negative); Blood,Urine 1+ (Negative); Color,Urine Yellow (Lt Yel-Yel); Glucose, Urine Negative (Negative); Hyaline Casts,Urine < 1 /hpf (0-1); Ketones,Urine Negative (Negative); Leukocyte Esterase,Urine Positive (Negative); Nitrite,Urine Negative (Negative); Protein,Urine 2+ (Neg - Trace); RBC,Urine 6 /hpf (0-3); Specific Gravity,Urine 1.024 (1.001-1.035); Squamous Epithelial Cell,Urine 5 /hpf (0-5); Urobilinogen,Urine Negative mg/dL (0.0-1.0); WBC,Urine 547 /hpf (0-5)
[2025-04-08 16:49] LABS: Clarity,Urine Cloudy (Clear/Hazy)
[2025-04-08] MEDS: AZITHROMYCIN INJ 500 MG in SODIUM CHLORIDE 0.9% 250 ML 250 ML 250 MG IV (17:26)
[2025-04-08] MEDS: SODIUM CHLORIDE 0.9% 1000 ML 1,000 ML 60 ML IV (17:27)
--- NOTE | 2025-04-08 19:40 | PC.NURSE ---
Admission questions obtained from [place] caregiver at bedside.
--- NOTE | 2025-04-08 21:26 | PD.IMCONS ---
HPI Data of Consult Requesting Physician: Len Nuñez MD Primary Care Provider: Simone Avila MD Consult Narrative Reason for consult: Diarrhea stools FOBT positive anemia History of present illness: 59 years old female evaluated the request of the ER physician Complains of fever chills and black tarry stools Presenting hemoglobin hematocrit 8.1 and 24.0 With a BUN/creatinine of 45 and 4.0 Pro-Hehsam at 8.02 Patient was subsequently admitted Baseline hemoglobin is 9 g as of 05/12/2024 Patient has a history of developmental delay hypertension type 2 diabetes mellitus chronic kidney disease and chronic anemia Patient on 04/16/2024 underwent upper endoscopy with 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 has done well since then cc:: cc: Len Nuñez MD Review of Systems Review of Systems ROS Unobtainable: unobtainable due to medical condition Past Medical History Surgical History OTHER SURGICAL HX: As in the history of present illness Meds Home Medications and Allergies Home Medications ?Medication ?Instructions ?Recorded ?Confirmed ?Type allopurinol 100 mg tablet 100 mg PO QDAY gout #30 tabs 03/31/14 04/08/25 History (Zyloprim) docusate sodium 100 mg capsule 100 mg PO BID #60 caps 03/31/14 04/08/25 History (Colace) montelukast 10 mg tablet 10 mg PO HS #30 tabs 03/31/14 04/08/25 History (Singulair) quetiapine 50 mg tablet (Seroquel) 50 mg PO HS #30 tabs 03/31/14 04/08/25 History linagliptin 5 mg tablet (Tradjenta) 5 mg PO QAM ##0 03/07/17 04/08/25 History loratadine 10 mg tablet 10 mg PO QDAY 04/17/19 04/08/25 History lovastatin 40 mg tablet 40 mg PO QPM 04/17/19 04/08/25 History vitamin B complex-vitamin C-folic 1 tab PO QAM 04/17/19 04/08/25 History acid 0.8 mg tablet (Janae-Steven) cholecalciferol (vitamin D3) 125 5,000 unit PO QDAY 04/04/23 04/08/25 History mcg (5,000 unit) tablet (Vitamin D3) furosemide 20 mg tablet (Lasix) 20 mg PO .QOD water retention,feet 11/03/23 04/08/25 History swelling ferrous sulfate 325 mg (65 mg 325 mg PO HS anemia 11/04/23 04/08/25 History iron) tablet lisinopril 40 mg tablet 40 mg PO QDAY 11/04/23 04/08/25 History metformin 500 mg tablet 500 mg PO QPM 11/19/23 04/08/25 History L.acidophil-L.casei-B.bifid-B.longum-FOS 1 cap PO HS 03/23/24 04/08/25 History 2 billion cell-50 mg capsule (Probiotic Blend) amlodipine 10 mg tablet 10 mg PO DAILY 03/23/24 04/08/25 History carbamazepine 100 mg 100 mg PO BID behaviors 03/23/24 04/08/25 History capsule,extended release [id number] famotidine 40 mg tablet (Pepcid) 40 mg PO QDAY 03/23/24 04/08/25 History acetaminophen 500 mg tablet 1,000 mg PO Q6H PRN pain 04/08/25 04/08/25 History (Acetaminophen Extra Strength) carvedilol 12.5 mg tablet 12.5 mg PO BID 04/08/25 04/08/25 History hyoscyamine sulfate 0.125 mg/mL 0.125 mg PO PRN secretions 04/08/25 04/08/25 History oral drops (Hyosyne) loperamide 2 mg capsule 2 mg PO Q6H PRN diarrhea 04/08/25 04/08/25 History (Anti-Diarrheal (loperamide)) lorazepam 2 mg/mL oral concentrate 0.5 mg PO Q4H PRN agitation 04/08/25 04/08/25 History (Lorazepam Intensol) morphine concentrate 100 mg/5 mL mg 04/08/25 History (20 mg/mL) oral solution ondansetron HCl 4 mg tablet 4 mg PO Q4H PRN nausea and vomiting 04/08/25 04/08/25 History sennosides 8.6 mg-docusate sodium 2 tab-cap PO QDAY 04/08/25 04/08/25 History 50 mg tablet sulfamethoxazole 800 1 tab PO BID 04/08/25 04/08/25 History mg-trimethoprim 160 mg tablet Allergies Allergy/AdvReac Type Severity Reaction Status Date / Time No Known Allergies Allergy Verified 04/08/25 12:16 Exam Vital Signs Temp Pulse Resp BP Pulse Ox O2 Del Method 97.9 F 83 15 118/62 93 L Room Air 04/08/25 16:18 04/08/25 19:30 04/08/25 16:18 04/08/25 16:18 04/08/25 16:18 04/08/25 16:18 Constitutional Comments: Chronically ill-appearing Routine Respiratory Exam Comments: Normal to auscultation Routine Abdominal Exam Comments: Soft nontender positive bowel sounds Results Labs 04/08/25 14:26 04/08/25 13:00 Labs: Short CBC 04/08/25 04/08/25 Range/Units 13:00 14:26 WBC 9.7 8.6 (3.6-11.0) Thou/mm3 Hgb 8.9 L 8.1 L (12.0-16.0) g/dL Hct 26.3 L 24.0 L (36.0-46.0) % Plt Count 211 194 (140-440) Thou/mm3 BMP 04/08/25 13:00 Sodium 143 Potassium 3.3 L Chloride 105 Carbon Dioxide 25.0 BUN 45 H Creatinine 4.0 H Glucose 87 Calcium 9.1 Cardiac Enzymes 04/08/25 Range/Units 13:00 Troponin I 0.029 (0.0-0.045) ng/mL Liver Function 04/08/25 Range/Units 13:00 Total Bilirubin < 0.2 L (0.3-1.2) mg/dL AST 20 (0-34) U/L ALT 16 (10-49) U/L Alkaline Phosphatase 59 (46-116) U/L Albumin 3.9 (3.4-4.8) gm/dL Urine 04/08/25 Range/Units 16:30 Urine Color Yellow (Lt Yel-Yel) Urine Clarity Cloudy A (Clear/Hazy) Urine pH 6.0 (5.0-7.0) Ur Specific [place] 1.024 (1.001-1.035) Urine Protein 2+ A (Neg - Trace) Urine Glucose (UA) Negative (Negative) ABG Interpretation ABG results: 04/08/25 13:00 VBG pH 7.47 VBG pCO2 30 L VBG pO2 100 H VBG Base Excess -2 Assessment and Plan Additional Assessment & Plan Additional Plan: # Black tarry stools with drop in hemoglobin hematocrit and acute prerenal azotemia on CKD Is difficult to assess at this moment home his blood she has lost open she is hydrated hemoglobin hematocrit will go down further Plan N.p.o. midnight tonight except p.o. meds Consent for fiberoptic esophagogastroduodenoscopy with possible biopsy possible therapeutic intervention under intravenous moderate sedation scheduled for tomorrow Will follow the patient Other medical problems include Developmentally delayed Essential hypertension Type 2 diabetes mellitus MAYNOR on CKD
[2025-04-09] VITALS (17 sets, daily range): BP systolic 112–146; BP diastolic 59–96; PULSE 85–106; RESP 12–95; TEMP 36.2–36.8; O2SAT 90–100
[2025-04-09 06:12] LABS: OBS Developer Lot # 23003; OBS Performed By vasqk2; OBS QC OK? Yes; Occult Blood, Stool Positive (Negative)
[2025-04-09] MEDS: DOXYCYCLINE 100 MG TABLET PO ×2 (08:51→22:50)
[2025-04-09] MEDS: SENNA TABLET 1 TAB PO (08:51)
[2025-04-09] MEDS: ENOXAPARIN SOD INJ 40 MG/0.4 ML SYRINGE SC (08:51)
[2025-04-09] MEDS: DOCUSATE SOD 100 MG CAPSULE PO (08:51)
[2025-04-09] MEDS: PIPER/TAZO 3.375 GM PREMIX 3.375 GM/50 ML BAG IV ×2 (08:51→22:52)
[2025-04-09] MEDS: PANTOPRAZOLE INJ 40 MG VIAL IVP (08:52)
[2025-04-09 09:03] LABS: Basophils % (Auto) 1 % (0-2.5); Eosinophils % (Auto) 0 % (0-10); Hematocrit 27.6 % (36.0-46.0); Hemoglobin 8.9 g/dL (12.0-16.0); Immature Granulocytes % (Auto) 1 % (0-0); Immature Granulocytes Auto 0.11 Thou/mm3 (0.00-0.00); Lymphocytes # (Auto) 1.1 Thou/mm3 (1.0-4.8); Lymphocytes % (Auto) 12 % (10-50); Mean Corpuscular HGB Conc 32.2 g/dl (31.0-37.0); Mean Corpuscular Hemoglobin 31.6 pg (25.0-35.0); Mean Corpuscular Volume 98 fL (80-100); Monocytes # (Auto) 1.1 Thou/mm3 (0.0-0.8); Monocytes % (Auto) 13 % (0-12); Neutrophils # (Auto) 6.4 Thou/mm3 (1.8-7.7); Neutrophils % (Auto) 73 % (37-80); Nucleated Red Blood Cell % 0 /100 WBC (0); Platelet Count 219 Thou/mm3 (140-440); Red Blood Count 2.82 Miln/mm3 (4.00-5.20); White Blood Count 8.8 Thou/mm3 (3.6-11.0)
[2025-04-09 09:23] LABS: Alanine Aminotransferase 15 U/L (10-49); Albumin, Serum 3.8 gm/dL (3.4-4.8); Albumin/Globulin Ratio 1.4 (1.2-2.2); Alkaline Phosphatase 58 U/L (46-116); Anion Gap 16 (7-16); Aspartate Amino Transferase 17 U/L (0-34); BUN/Creatinine Ratio 14 Ratio (12-20); Bilirubin,Total < 0.2 mg/dL (0.3-1.2); Blood Urea Nitrogen 38 mg/dL (9-23); Calcium 8.6 mg/dL (8.3-10.6); Calcium (Corrected) 8.8 mg/dL (8.5-10.1); Carbon Dioxide 18.9 mMol/L (20.0-31.0); Chloride 112 mMol/L (98-107); Creatinine (Component) 2.8 mg/dL (0.6-1.3); Estimated Creatinine Clearance 21.2 mL/min (>60); Globulin 2.8 gm/dL (2.3-3.5); Glucose 97 mg/dL (74-106); Magnesium 2.1 mg/dL (1.6-2.6); Osmolality,Calculated 301 (275-295); Phosphorous 3.6 mg/dL (2.4-5.1); Potassium 3.6 mMol/L (3.4-5.1); Sodium 147 mMol/L (136-145); Thyroid Stimulating Hormone 0.91 uIU/mL (0.55-4.78); Total Protein 6.6 gm/dL (5.7-8.2); eGFR 19 See Note
[2025-04-09 09:39] LABS: Glucose Estimated Average 131 mg/dL (80-131); Hemoglobin A1C 6.2 % Hgb (4.8-6.0)
--- NOTE | 2025-04-09 10:34 | PCS.ST ---
NPO for EGD. History of esophageal dysmotility. ST will follow up
--- NOTE | 2025-04-09 11:07 | PC.SS ---
Patient is alert/oriented. She is developmentally delayed but high functioning and can make all how own medical decisions with her sister. Patient's careprovider was present and confirmed patient resides at [facility] with 24 hour care. Patient is not conserved. Her sister is an FINAL ASSEMBLY WORKER and assists with her to make all healthcare decisions. Rebekah Burks, sister, . Patient is currently on hospice with [facility] and has 02 at home. Patient has been open with [facility] for the last year now. Patient is pending an EGD. Residential home provides transportation assistance. Patient plans on returning back. Patient PCP: Dr. Avila. [facility] home is Nina Campbell, it security project manager @ residential home, . D/c plan is to return back to [facility] and staff will be providing transportation assistance Alt medical decision maker: Rebekahzena Guzman, sister,
--- NOTE | 2025-04-09 13:59 | ESPR_ITS ---
Documentation for date of: 04/09/25 Subjective Subjective Interval history: Patient seen today at the bedside found awake, alert, orientedx3. No overnight events reported. Vitals and labs reviewed. Cultures growing GNR will await for speciation however will switch antibiotic therapy to Zosyn and doxycycline as patient has previous cultures that grew Pseudomonas resistant to ceftriaxone. Patient is also pending EGD with GI specialist to evaluate for GI bleed. Exam Vital Signs Temp Pulse Resp BP Pulse Ox O2 Del Method 98.0 F 90 17 146/80 H 92 L Room Air 04/09/25 12:00 04/09/25 12:00 04/09/25 12:00 04/09/25 12:00 04/09/25 12:00 04/09/25 12:00 Narrative Exam Physical Exam GENERAL: NAD, AAOx3, developmentally delayed HEENT: Moist mucosa. Eyes open, symmetrical, & clear CARDIO: Heart RRR, no obvious murmurs PULM: Coughing, decreased breath sounds on the left GI: Abdomen soft, nondistended, no pain on palpation. BSx4 SKIN/MSK/EXT: No wounds/rashes/edema/amputations, no pain on palpation. Pedal pulses present B/L NEURO: AAOx3, no focal neuro deficits, able to move all 4 extremities Objective Labs 04/09/25 08:22 04/09/25 08:22 Labs: Laboratory Results - last 24 hr 04/08/25 04/08/25 04/08/25 13:00 14:26 15:00 WBC 8.6 RBC 2.52 L Hgb 8.1 L Hct 24.0 L MCV 95 MCH 32.1 MCHC 33.8 RDW Std Deviation 54.2 H Plt Count 194 Neut % (Auto) 72 Lymph % (Auto) 13 [place] % (Auto) 14 H Eos % (Auto) 0 Baso % (Auto) 0 Neut # (Auto) 6.2 Lymph # (Auto) 1.1 [place] # (Auto) 1.2 H Eos # (Auto) 0.0 Baso # (Auto) 0.0 Immature Gran # (Auto) 0.09 H Absolute Nucleated RBC 0.00 Immature Gran % 1 H Nucleated RBC % 0 VBG pH 7.47 VBG pCO2 30 L VBG pO2 100 H VBG O2 Sat ([place]ac[place]) 99 H VBG Base Excess -2 Sodium 143 Potassium 3.3 L Chloride 105 Carbon Dioxide 25.0 Anion Gap 13 BUN 45 H Creatinine 4.0 H Estim Creat Clear Calc 14.9 L eGFR 12 L* BUN/Creatinine Ratio 11 L Glucose [address] Glu mg/dL Hemoglobin A1c Calculated Osmolality 295 Lactic Acid 1.3 Calcium 9.1 Corrected Calcium 9.2 Phosphorus Magnesium Total Bilirubin < 0.2 L AST 20 ALT 16 Alkaline Phosphatase 59 Troponin I 0.029 Total Protein 6.8 Albumin 3.9 Globulin 2.9 Albumin/Globulin Ratio 1.3 Lipase 38 Procalcitonin 8.02 H TSH Ur Collection Type Urine Color Urine Clarity Urine pH Ur Specific Bradley Urine Protein Urine Glucose (UA) Urine Ketones Urine Blood Urine Nitrite Urine Bilirubin Urine Urobilinogen (Auto) Ur Leukocyte Esterase Urine RBC Urine WBC Ur Squamous Epith Cells Urine Bacteria Hyaline Casts Stool Occult Blood Positive A Blood Type A Positive Antibody Screen NEGATIVE Blood Bank Wristband ID Yes 04/08/25 04/09/25 16:30 08:22 WBC 8.8 RBC 2.82 L Hgb 8.9 L Hct 27.6 L MCV 98 MCH 31.6 MCHC 32.2 RDW Std Deviation 56.0 H Plt Count 219 Neut % (Auto) 73 Lymph % (Auto) 12 [place] % (Auto) 13 H Eos % (Auto) 0 Baso % (Auto) 1 Neut # (Auto) 6.4 Lymph # (Auto) 1.1 [place] # (Auto) 1.1 H Eos # (Auto) 0.0 Baso # (Auto) 0.0 Immature Gran # (Auto) 0.11 H Absolute Nucleated RBC 0.00 Immature Gran % 1 H Nucleated RBC % 0 VBG pH VBG pCO2 VBG pO2 VBG O2 Sat ([place]ac[place]) VBG Base Excess Sodium 147 H Potassium 3.6 Chloride 112 H Carbon Dioxide 18.9 L Anion Gap 16 BUN 38 H Creatinine 2.8 H D Estim Creat Clear Calc 21.2 L eGFR 19 L BUN/Creatinine Ratio [address] Glu mg/dL 131 Hemoglobin A1c 6.2 H Calculated Osmolality 301 H Lactic Acid Calcium 8.6 Corrected Calcium 8.8 Phosphorus 3.6 Magnesium 2.1 Total Bilirubin < 0.2 L AST 17 ALT 15 Alkaline Phosphatase 58 Troponin I Total Protein 6.6 Albumin 3.8 Globulin 2.8 Albumin/Globulin Ratio 1.4 Lipase Procalcitonin TSH 0.91 Ur Collection Type Clean Catch Urine Color Yellow Urine Clarity Cloudy A Urine pH 6.0 Ur Specific Bradley 1.024 Urine Protein 2+ A Urine Glucose (UA) Negative Urine Ketones Negative Urine Blood 1+ A Urine Nitrite Negative Urine Bilirubin 1+ A Urine Urobilinogen (Auto) Negative Ur Leukocyte Esterase Positive Urine RBC 6 H Urine WBC 547 H Ur Squamous Epith Cells 5 Urine Bacteria 2+ A Hyaline Casts < 1 Stool Occult Blood Blood Type Antibody Screen Blood Bank Wristband ID ABG Interpretation ABG results: 04/08/25 13:00 VBG pH 7.47 VBG pCO2 30 L VBG pO2 100 H VBG Base Excess -2 Quality Measures Quality Measures none Assessment & Plan Assessment Current Active Medications: Generic Name Dose Route Start Last Admin Trade Name Freq PRN Reason Stop Dose Admin Acetaminophen 650 mg 04/08/25 15:12 Acetaminophen 325 Mg Tablet PO 05/08/25 15:11 Q6H PRN Fever >101.5 Acetaminophen 1,000 mg 04/09/25 00:57 Acetaminophen 500 Mg Tablet PO 05/09/25 00:56 Q6H PRN PAIN SCALE 1-3 (mild Dextrose 25 ml 04/08/25 15:19 Dextrose 50%-Water Inj 50 Ml Syringe IV 05/08/25 15:18 Q15MIN PRN BG 50-70 responsive npo pt Dextrose 50 ml 04/08/25 15:19 Dextrose 50%-Water Inj 50 Ml Syringe IV 05/08/25 15:18 Q15MIN PRN BG <50 OR BG <70 & pt unresponsive Docusate Sodium 100 mg 04/09/25 09:00 04/09/25 08:51 Docusate Sod 100 Mg Capsule PO 05/09/25 08:59 100 mg QDAY LANDON Administration Protocol Doxycycline Hyclate 100 mg 04/09/25 09:00 04/09/25 08:51 Doxycycline 100 Mg Tablet PO 04/16/25 08:59 100 mg BID LANDON Administration Enoxaparin Sodium 40 mg 04/09/25 09:00 04/09/25 08:51 Enoxaparin Sod Inj 40 Mg/0.4 Ml Syringe SC 04/23/25 08:59 40 mg QDAY LANDON Administration Glucagon 1 mg 04/08/25 15:19 Glucagon Inj 1 Mg Vial IM Q15MIN PRN BG <70, and no IV access Piperacillin/Tazobactam/Dextrose 3.375 gm in 50 mls @ 12.5 mls/hr 04/09/25 21:00 Zosyn IV 04/16/25 20:59 Q12HR LANDON Insulin Human Lispro 0 unit 04/08/25 17:00 04/09/25 11:51 Insulin Lispro (Admelog) 1 Unit/0.01 Ml Unit SC 05/08/25 16:59 Not Given AC LANDON Protocol Ondansetron HCl 4 mg 04/08/25 15:12 Ondansetron Inj 2 Mg/Ml Inj 2 Ml IV 05/08/25 15:11 Q6H PRN NAUSEA OR VOMITING Protocol Pantoprazole Sodium 40 mg 04/09/25 09:00 04/09/25 08:52 Pantoprazole Inj 40 Mg Vial IVP 05/09/25 08:59 40 mg QDAY LANDON Administration Sennosides 1 tab 04/09/25 09:00 04/09/25 08:51 Senna Tablet PO 05/09/25 08:59 1 tab QDAY LANDON Administration Protocol Plan 59-year-old female on hospice with past medical history of developmental delay, asthma, hypertension, hyperlipidemia, type 2 diabetes, CKD seen by Dr. Mendez, chronic anemia, gout, GERD history of recurrent pneumonias and UTIs who presented to the ED due to fever chills. Per the caregiver patient was having fevers a couple days ago and hospice agency put the patient on Bactrim. Subsequently patient continued to have fevers and watery diarrhea (nonbloody) and went to her PCP was told her blood pressure was low and brought here to the ER. #Fever/chills #Diarrhea #Hypotension Patient having fevers not responding to Bactrim from hospice agency developed diarrhea after course of bactrim Found to have low blood pressure 1 L bolus given in the ED ? On Zosyn + Doxycycline (04/09/2025?) ? f/u C.Dif ? Follow-up blood urine and sputum cultures #Acute Kidney injury on CKD-improving Fine Unhairer is Dr. Franco ? on IVFs ? Avoid nephrotoxins ? Renally dose medications ? Bladder scan and straight In-N-Out cath as needed #?Gi bleed #Chronic normocytic anemia Supposedly patient was having dark stools however patient is on iron supplementation chronically, baseline hemoglobin seems to be around 9 ? EGD today ? Transfuse if hemoglobin below 7 ? Monitor CBC ? GI consulted, appreciate recommendations ? On PPI #Hypertension Patient currently hypotensive will resume antihypertensives as tolerated #Diabetes mellitus type 2 Last A1c: 10/2023 A1c 5.6 ? SSI ? Hypoglycemia protocol in place Health Maintenance: Disposition: Med telemetry Fluids: NS Feeding: Cardiac Thrombo prophylaxis: Lovenox-on hold for gi work for gi bleed Gastric Ulcer prophylaxis: Pantoprazole CODE STATUS: Full code Case discussed with my attending Dr. Iman Nuñez MD PGY-1 Attending Provider Attestation/Addendum 59-year-old female with developmental delay, hypertension, hyperlipidemia, type 2 diabetes mellitus, CKD and previous hospitalization for recurrent pneumonias who presented to the ER with chief complaint of fevers and chills. Of note, patient is on hospice care subsequently hospice agency prescribed the patient on Bactrim with no improvement and subsequently presented to PCP who noted her blood pressure to be low and sent to the ER. In the ER, initial blood pressure 73/46 saturating 92% on room air and subsequently patient will be admitted for hypotension likely related to dehydration causing acute kidney injury superimposed on CKD for which plan to continue IV antibiotic therapy and possible pneumonia for which plan to continue Rocephin and azithromycin. Patient does complain of diarrhea and plan to rule out C. difficile given the patient was on Bactrim. In addition, patient also noted to have melena however patient is on iron supplements however ER consulted GI and pending EGD. I reviewed above note and agree with findings and plans. I have also personally examined the patient with medicine team and went over assessment and plan with medical team including help desk internship and resident physician.
[2025-04-09] MEDS: carVEDILOL 12.5 MG TABLET PO (22:51)
[2025-04-09] MEDS: DEXTROSE 5%-WATER 500 ML 50 ML IV (23:02)
--- NOTE | 2025-04-09 23:06 | PC.NURSE ---
Called Rebekah Guzman, patient's sister/decision-maker, via telephone to obtain consent for colonoscopy. Rebekah does not want patient to have the procedure done. Dr. Peterson was made aware. ordered to cancel/stop order for Gol[place]. Order noted and will be carried out.
[2025-04-10] VITALS (15 sets, daily range): BP systolic 131–158; BP diastolic 77–96; PULSE 73–89; RESP 15–95; TEMP 36.2–37.1; O2SAT 94–98; BMI 31.5
--- NOTE | 2025-04-10 09:16 | CHAP ---
Patient expressed gratitude for visit.
[2025-04-10] MEDS: amLODIPine BESYLATE 5 MG TABLET 10 MG PO (09:24)
[2025-04-10] MEDS: SENNA TABLET 1 TAB PO (09:24)
[2025-04-10] MEDS: VIT B12/Vit C/FA (Nephrovite) TABLET 1 TAB PO (09:24)
[2025-04-10] MEDS: carVEDILOL 12.5 MG TABLET PO ×2 (09:25→20:32)
[2025-04-10] MEDS: DOXYCYCLINE 100 MG TABLET PO ×2 (09:25→20:32)
[2025-04-10] MEDS: DOCUSATE SOD 100 MG CAPSULE PO (09:25)
[2025-04-10] MEDS: PANTOPRAZOLE 40 MG TABLET PO (09:25)
[2025-04-10] MEDS: PIPER/TAZO 3.375 GM PREMIX 3.375 GM/50 ML BAG IV ×2 (09:26→20:33)
--- NOTE | 2025-04-10 13:48 | PD.RESPRO ---
Documentation for date of: 04/10/25 Exam Vital Signs Temp Pulse Resp BP Pulse Ox O2 Del Method O2 Flow Rate 98.4 F 82 17 152/96 H 95 Room Air 3 04/10/25 12:00 04/10/25 12:00 04/10/25 12:00 04/10/25 12:00 04/10/25 12:00 04/10/25 04:00 04/10/25 04:00 Objective Labs 04/09/25 08:22 04/09/25 08:22 ABG Interpretation ABG results: 04/08/25 13:00 VBG pH 7.47 VBG pCO2 30 L VBG pO2 100 H VBG Base Excess -2 Quality Measures Quality Measures none Assessment & Plan Assessment Current Active Medications: Generic Name Dose Route Start Last Admin Trade Name Freq PRN Reason Stop Dose Admin Acetaminophen 650 mg 04/08/25 15:12 Acetaminophen 325 Mg Tablet PO 05/08/25 15:11 Q6H PRN Fever >101.5 Acetaminophen 1,000 mg 04/09/25 00:57 Acetaminophen 500 Mg Tablet PO 05/09/25 00:56 Q6H PRN PAIN SCALE 1-3 (mild Amlodipine Besylate 10 mg 04/09/25 14:15 04/10/25 09:24 Amlodipine Besylate 5 Mg Tablet PO 05/09/25 14:14 10 mg DAILY LANDON Administration Carvedilol 12.5 mg 04/09/25 21:00 04/10/25 09:25 Carvedilol 12.5 Mg Tablet PO 05/09/25 20:59 12.5 mg BID LANDON Administration Dextrose 25 ml 04/08/25 15:19 Dextrose 50%-Water Inj 50 Ml Syringe IV 05/08/25 15:18 Q15MIN PRN BG 50-70 responsive npo pt Dextrose 50 ml 04/08/25 15:19 Dextrose 50%-Water Inj 50 Ml Syringe IV 05/08/25 15:18 Q15MIN PRN BG <50 OR BG <70 & pt unresponsive Docusate Sodium 100 mg 04/09/25 09:00 04/10/25 09:25 Docusate Sod 100 Mg Capsule PO 05/09/25 08:59 100 mg QDAY LANDON Administration Protocol Doxycycline Hyclate 100 mg 04/09/25 09:00 04/10/25 09:25 Doxycycline 100 Mg Tablet PO 04/16/25 08:59 100 mg BID LANDON Administration Enoxaparin Sodium 40 mg 04/09/25 09:00 04/09/25 08:51 Enoxaparin Sod Inj 40 Mg/0.4 Ml Syringe SC 04/23/25 08:59 40 mg QDAY LANDON Administration Glucagon 1 mg 04/08/25 15:19 Glucagon Inj 1 Mg Vial IM Q15MIN PRN BG <70, and no IV access Piperacillin/Tazobactam/Dextrose 3.375 gm in 50 mls @ 12.5 mls/hr 04/09/25 21:00 04/10/25 09:26 Zosyn IV 04/16/25 20:59 12.5 mls/hr Q12HR LANDON Administration Insulin Human Lispro 0 unit 04/08/25 17:00 04/10/25 11:13 Insulin Lispro (Admelog) 1 Unit/0.01 Ml Unit SC 05/08/25 16:59 Not Given AC LANDON Protocol Ondansetron HCl 4 mg 04/08/25 15:12 Ondansetron Inj 2 Mg/Ml Inj 2 Ml IV 05/08/25 15:11 Q6H PRN NAUSEA OR VOMITING Protocol Pantoprazole Sodium 40 mg 04/10/25 09:00 04/10/25 09:25 Pantoprazole 40 Mg Tablet PO 05/10/25 08:59 40 mg QDAY LANDON Administration Sennosides 1 tab 04/09/25 09:00 04/10/25 09:24 Senna Tablet PO 05/09/25 08:59 1 tab QDAY LANDON Administration Protocol Vitamin B Complex/Vit C/Folic Acid 1 tab 04/09/25 14:15 04/10/25 09:24 Vit B12/Vit C/Fa (Nephrovite) Tablet PO 05/09/25 14:14 1 tab QAM LANDON Administration
--- NOTE | 2025-04-10 14:12 | ESDS_ITS ---
<Statement entered by Sheyla Martino DO - 04/11/25 08:15> I, Sheyla Martino DO, attest that I was physically present for the dumont portions of the service and evaluated the patient with the resident and I reviewed and discussed the case with the resident and agree with the resident's findings and plans of care as documented above Planned Discharge Date 04/10/25 DS: Providers Provider Date of admission: 04/08/25 15:13 Primary care physician: Simone Avila MD Admitting Provider: Layne Valerio MD Attending Provider on Admission: Sheyla Martino DO Consults: 04/08/25 14:45 Consult to Gastroenterology Stat Comment: Consulting Provider: Germaine Peterson 04/08/25 19:29 [facility] Referral - Knowledge Deficit Routine Comment: Positive screening for knowledge deficit needs. Attending Provider on DC: Sheyla Martino DO Discharging Provider: Len Nuñez MD Anticipated date of discharge: 04/10/25 DS: Diagnosis Problem List Completed Was Problem List Reviewed/Reconciled?: Yes Hospital Course Hospital Course Hospital course: 59-year-old female on hospice with past medical history of developmental delay, asthma, hypertension, hyperlipidemia, type 2 diabetes, CKD seen by Dr. Mendez, chronic anemia, gout, GERD history of recurrent pneumonias and UTIs who presented to the ED due to fever chills. Per the caregiver patient was having fevers a couple days ago and hospice agency put the patient on Bactrim. Subsequently patient continued to have fevers and watery diarrhea (nonbloody) and went to her PCP was told her blood pressure was low and brought here to the ER. During hospitalization patient was treated with IV antibiotics, cultures were drawn and antibiotic therapy was narrowed at the time of discharge. Patient came with dark tarry stools per ED and had GI consulted and had EGD which showed normal esophagus. Colonoscopy was recommended to find source of bleeding. However, patient's sister and decision maker declined any further aggressive workup. Patient has otherwise been tolerating PO intake and has not had any episodes of emesis. At this time patient is medically stable for discharge. Follow up with primary care physician within 1 week of discharge. Follow up with hospice agency. Follow up with gastroenterology within 2 weeks of discharge. You have been prescribed cefuroxime antibiotic for 7 more days for UTI. Should any symptoms recur or worsen patient is instructed to return to the ED. Problem List: #Urinary tract infection #Diarrhea-resolved #Hypotension-resolved #Acute Kidney injury on CKD-resolved #?Gi bleed #Chronic normocytic anemia #Hypertension #Diabetes mellitus type 2 Case discussed with my attending Dr. Salena Nuñez MD PGY-1 Status at Discharge Functional status at discharge: independent ambulation Overall status at discharge: patient is back to baseline Time Spent with Patient Time attestation: Total time spent providing and/or coordinating discharge services: Time spent: Greater than 30 minutes Exam Vital Signs Temp Pulse Resp BP Pulse Ox O2 Del Method O2 Flow Rate 98.4 F 82 17 152/96 H 95 Room Air 3 04/10/25 12:00 04/10/25 12:00 04/10/25 12:00 04/10/25 12:00 04/10/25 12:00 04/10/25 04:00 04/10/25 04:00 Narrative Exam Physical Exam GENERAL: NAD, AAOx3, developmentally delayed HEENT: Moist mucosa. Eyes open, symmetrical, & clear CARDIO: Heart RRR, no obvious murmurs PULM: Coughing, decreased breath sounds on the left GI: Abdomen soft, nondistended, no pain on palpation. BSx4 SKIN/MSK/EXT: No wounds/rashes/edema/amputations, no pain on palpation. Pedal pulses present B/L NEURO: AAOx3, no focal neuro deficits, able to move all 4 extremities Discharge Plan Plan Patient Disposition: Home w/HOSPICE Care Plan Goals: FOllow up with primary care physician within 1 week of discharge Follow up with hospice agency Follow up with gastroenterology within 2 weeks of discharge You have been prescribed cefuroxime antibiotic for 7 more days for UTI Should any symptoms recur or worsen patient is instructed to return to the ED. Prescriptions/Referrals Prescriptions/Med Rec: New cefuroxime axetil 500 mg tablet 500 mg PO BID 7 Days Qty: 14 0RF Continued allopurinol [Zyloprim] 100 MG tablet 100 mg PO QDAY Qty: 30 docusate sodium [Colace] 100 MG capsule 100 mg PO BID Qty: 60 montelukast [Singulair] 10 MG tablet 10 mg PO HS Qty: 30 quetiapine [Seroquel] 50 MG tablet 50 mg PO HS Qty: 30 Tradjenta 5 MG tablet 5 mg PO QAM Qty: 0 lovastatin 40 mg Tablet 40 mg PO QPM Janae-Steven 0.8 mg Tablet 1 tab PO QAM loratadine 10 mg Tablet 10 mg PO QDAY furosemide [Lasix] 20 mg Tablet 20 mg PO .QOD Rx Instructions: Q Other Day lisinopril 40 mg Tablet 40 mg PO QDAY ferrous sulfate 325 mg (65 mg iron) Tablet 325 mg PO HS carvedilol 12.5 mg tablet 12.5 mg PO BID Rx Instructions: Hold if BP<120/60 sennosides-docusate sodium 8.6-50 mg tablet 2 tab-cap PO QDAY Rx Instructions: senna plus ondansetron HCl 4 mg tablet 4 mg PO Q4H PRN (Reason: nausea and vomiting) Rx Instructions: New prescription 04/07/25 from hospice hyoscyamine sulfate [Hyosyne] 0.125 mg/mL drops 0.125 mg PO PRN Rx Instructions: under the tongue. Hospice. loperamide [Anti-Diarrheal (loperamide)] 2 mg capsule 2 mg PO Q6H PRN (Reason: diarrhea) lorazepam [Lorazepam Intensol] 2 mg/mL concentrate 0.5 mg PO Q4H PRN (Reason: agitation) Rx Instructions: Hospice. acetaminophen [Acetaminophen Extra Strength] 500 mg tablet 1,000 mg PO Q6H PRN (Reason: pain) Rx Instructions: body aches. Over the counter. cholecalciferol (vitamin D3) [Vitamin D3] 125 mcg (5,000 unit) Tablet 5,000 unit PO QDAY metformin 500 mg tablet 500 mg PO QPM pantoprazole 40 mg Tablet,Delayed Release (Dr/Ec) 40 mg PO QDAY Qty: 30 0RF amlodipine 10 mg tablet 10 mg PO DAILY carbamazepine 100 mg capsule, ER multiphase 12 hr 100 mg PO BID Probiotic Blend 2 billion cell-50 mg Capsule 1 cap PO HS Rx Instructions: give with meal/snack famotidine [Pepcid] 40 mg tablet 40 mg PO QDAY carvedilol 6.25 mg tablet 6.25 mg PO BID Qty: 60 0RF Rx Instructions: must administer with a meal/food metoclopramide HCl 10 mg tablet 10 mg PO HS 30 Days Qty: 30 3RF metoclopramide HCl 5 mg Tablet 5 mg PO QAM 30 Days Qty: 30 3RF Discontinued sulfamethoxazole-trimethoprim 800-160 mg tablet 1 tab PO BID Patient Comments: TAKE 1 TABLET BY MOUTH EVERY 12 HOURS FOR URINARY TRACT INFECTION Rx Instructions: for 5 days. Started 04/04/25 night time. Need 2 more doses to complete, tonight and tomorrow morning. Referrals: Simone Avila MD [Primary Care Provider] - Patient/Caregiver Discharge Instructions Print Language: Guamanian Stand Alone Forms: Nelly Award Info., Patient Portal Info Letter Discharge Order Discharge Orders: Discharge (Routine); Ordered 04/10/25 Ordered By: Len Nuñez Quality Discharge Quality Measures VTE prophylaxis
--- NOTE | 2025-04-10 15:00 | PC.SS ---
Addendum entered by Karime Valdes 04/10/25 15:55: SS spoke to floor nurse who states patient's sister who is a WIND DEVELOPMENT DIRECTOR has additional labs and a list of things she wants completed prior to d/c. Patient is on hospice. No IMM needed. However, WIND DEVELOPMENT DIRECTOR is not agreeable with today's discharge. Physician team aware. Original Note: Follow up note: SS spoke to floor nurse re: discharge needs. Patient is pending d/c today. SS updated careprovider at bedside. Patient will d/c back today to [facility]. Patient is a resident of [facility]. Staff will provide transport. [facility] was notified. Orders pending to send to hospice for continued care.
[2025-04-10 15:48] LABS: Basophils % (Auto) 1 % (0-2.5); Eosinophils # (Auto) 0.1 Thou/mm3 (0.0-0.5); Eosinophils % (Auto) 1 % (0-10); Hematocrit 24.6 % (36.0-46.0); Immature Granulocytes % (Auto) 3 % (0-0); Immature Granulocytes Auto 0.21 Thou/mm3 (0.00-0.00); Lymphocytes # (Auto) 1.1 Thou/mm3 (1.0-4.8); Lymphocytes % (Auto) 18 % (10-50); Mean Corpuscular HGB Conc 33.7 g/dl (31.0-37.0); Mean Corpuscular Hemoglobin 31.4 pg (25.0-35.0); Mean Corpuscular Volume 93 fL (80-100); Monocytes # (Auto) 0.7 Thou/mm3 (0.0-0.8); Monocytes % (Auto) 11 % (0-12); Neutrophils # (Auto) 4.1 Thou/mm3 (1.8-7.7); Neutrophils % (Auto) 66 % (37-80); Nucleated Red Blood Cell % 0 /100 WBC (0); Platelet Count 241 Thou/mm3 (140-440); RDW Standard Deviation 54.1 fL (36.4-46.3); Red Blood Count 2.64 Miln/mm3 (4.00-5.20); White Blood Count 6.2 Thou/mm3 (3.6-11.0)
[2025-04-10 15:53] LABS: Hemoglobin 8.3 g/dL (12.0-16.0)
[2025-04-10 16:51] LABS: Alanine Aminotransferase 15 U/L (10-49); Albumin, Serum 3.8 gm/dL (3.4-4.8); Albumin/Globulin Ratio 1.4 (1.2-2.2); Alkaline Phosphatase 57 U/L (46-116); Anion Gap 14 (7-16); Aspartate Amino Transferase 17 U/L (0-34); BUN/Creatinine Ratio 14 Ratio (12-20); Bilirubin,Total 0.2 mg/dL (0.3-1.2); Blood Urea Nitrogen 27 mg/dL (9-23); Calcium (Corrected) 9.2 mg/dL (8.5-10.1); Carbon Dioxide 21.2 mMol/L (20.0-31.0); Chloride 109 mMol/L (98-107); Creatinine (Component) 1.9 mg/dL (0.6-1.3); Estimated Creatinine Clearance 30.6 mL/min (>60); Globulin 2.8 gm/dL (2.3-3.5); Glucose 120 mg/dL (74-106); Osmolality,Calculated 292 (275-295); Potassium 3.4 mMol/L (3.4-5.1); Sodium 144 mMol/L (136-145); Total Protein 6.6 gm/dL (5.7-8.2); eGFR 30 See Note
--- NOTE | 2025-04-10 19:33 | ESPR_ITS ---
Documentation for date of: 04/10/25 Subjective Subjective Interval history: Patient's colonoscopy was canceled as the daughter did not want to do any more invasive GI workup Hemoglobin at 8.3 patient being discharged Exam Vital Signs Temp Pulse Resp BP Pulse Ox O2 Del Method O2 Flow Rate 98.5 F 75 18 158/96 H 94 L Room Air 3 04/10/25 16:00 04/10/25 16:00 04/10/25 16:00 04/10/25 16:00 04/10/25 16:00 04/10/25 16:00 04/10/25 04:00 Objective Labs 04/10/25 15:39 04/10/25 15:39 Labs: Laboratory Results - last 24 hr 04/10/25 15:39 WBC 6.2 RBC 2.64 L Hgb 8.3 L Hct 24.6 L MCV 93 MCH 31.4 MCHC 33.7 RDW Std Deviation 54.1 H Plt Count 241 Neut % (Auto) 66 Lymph % (Auto) 18 [place] % (Auto) 11 Eos % (Auto) 1 Baso % (Auto) 1 Neut # (Auto) 4.1 Lymph # (Auto) 1.1 [place] # (Auto) 0.7 Eos # (Auto) 0.1 Baso # (Auto) 0.0 Immature Gran # (Auto) 0.21 H Absolute Nucleated RBC 0.00 Immature Gran % 3 H Nucleated RBC % 0 Sodium 144 Potassium 3.4 Chloride 109 H Carbon Dioxide 21.2 Anion Gap 14 BUN 27 H Creatinine 1.9 H D Estim Creat Clear Calc 30.6 L eGFR 30 L BUN/Creatinine Ratio 14 Glucose 120 H Calculated Osmolality 292 Calcium 9.0 Corrected Calcium 9.2 Total Bilirubin 0.2 L AST 17 ALT 15 Alkaline Phosphatase 57 Total Protein 6.6 Albumin 3.8 Globulin 2.8 Albumin/Globulin Ratio 1.4 Impressions Impression: Occult GI bleeding FOBT positive anemia blood loss posthemorrhagic anemia Continue current management Colonoscopy was canceled okay to discharge patient ABG Interpretation ABG results: 04/08/25 13:00 VBG pH 7.47 VBG pCO2 30 L VBG pO2 100 H VBG Base Excess -2 Assessment & Plan A&P Narrative # Black tarry stools with drop in hemoglobin hematocrit and acute prerenal azotemia on CKD Is difficult to assess at this moment home his blood she has lost open she is hydrated hemoglobin hematocrit will go down further Plan N.p.o. midnight tonight except p.o. meds Consent for fiberoptic esophagogastroduodenoscopy with possible biopsy possible therapeutic intervention under intravenous moderate sedation scheduled for tomorrow Will follow the patient Other medical problems include Developmentally delayed Essential hypertension Type 2 diabetes mellitus MAYNOR on CKD Time Spent With Patient Time: Total time spent is greater than 50% in coordination of care (as documented) at patient's floor/unit and/or counseling patient:
[2025-04-11] VITALS (7 sets, daily range): BP systolic 137–166; BP diastolic 75–101; PULSE 73–87; RESP 18; TEMP 36.4–36.7; O2SAT 94–95
[2025-04-11 06:16] LABS: Basophils # (Auto) 0.1 Thou/mm3 (0.0-0.2); Basophils % (Auto) 1 % (0-2.5); Eosinophils # (Auto) 0.1 Thou/mm3 (0.0-0.5); Eosinophils % (Auto) 2 % (0-10); Hematocrit 26.9 % (36.0-46.0); Hemoglobin 8.9 g/dL (12.0-16.0); Immature Granulocytes % (Auto) 5 % (0-0); Immature Granulocytes Auto 0.31 Thou/mm3 (0.00-0.00); Lymphocytes # (Auto) 1.2 Thou/mm3 (1.0-4.8); Lymphocytes % (Auto) 21 % (10-50); Mean Corpuscular HGB Conc 33.1 g/dl (31.0-37.0); Mean Corpuscular Hemoglobin 31.3 pg (25.0-35.0); Mean Corpuscular Volume 95 fL (80-100); Monocytes # (Auto) 0.8 Thou/mm3 (0.0-0.8); Monocytes % (Auto) 13 % (0-12); Neutrophils # (Auto) 3.5 Thou/mm3 (1.8-7.7); Neutrophils % (Auto) 58 % (37-80); Nucleated Red Blood Cell % 0 /100 WBC (0); Platelet Count 268 Thou/mm3 (140-440); RDW Standard Deviation 54.1 fL (36.4-46.3); Red Blood Count 2.84 Miln/mm3 (4.00-5.20); White Blood Count 5.9 Thou/mm3 (3.6-11.0)
[2025-04-11 06:29] LABS: Alanine Aminotransferase 15 U/L (10-49); Albumin, Serum 3.7 gm/dL (3.4-4.8); Albumin/Globulin Ratio 1.3 (1.2-2.2); Alkaline Phosphatase 58 U/L (46-116); Anion Gap 15 (7-16); Aspartate Amino Transferase 19 U/L (0-34); BUN/Creatinine Ratio 13 Ratio (12-20); Bilirubin,Total 0.2 mg/dL (0.3-1.2); Blood Urea Nitrogen 24 mg/dL (9-23); Calcium 9.3 mg/dL (8.3-10.6); Calcium (Corrected) 9.5 mg/dL (8.5-10.1); Carbon Dioxide 21.8 mMol/L (20.0-31.0); Chloride 110 mMol/L (98-107); Creatinine (Component) 1.8 mg/dL (0.6-1.3); Estimated Creatinine Clearance 32.3 mL/min (>60); Globulin 2.8 gm/dL (2.3-3.5); Glucose 108 mg/dL (74-106); Magnesium 1.7 mg/dL (1.6-2.6); Osmolality,Calculated 297 (275-295); Phosphorous 2.7 mg/dL (2.4-5.1); Potassium 3.4 mMol/L (3.4-5.1); Sodium 147 mMol/L (136-145); Total Protein 6.5 gm/dL (5.7-8.2); eGFR 32 See Note
[2025-04-11] MEDS: DOXYCYCLINE 100 MG TABLET PO (08:51)
[2025-04-11] MEDS: PIPER/TAZO 3.375 GM PREMIX 3.375 GM/50 ML BAG IV (08:51)
[2025-04-11] MEDS: PANTOPRAZOLE 40 MG TABLET PO (08:51)
[2025-04-11] MEDS: amLODIPine BESYLATE 5 MG TABLET 10 MG PO (08:51)
[2025-04-11] MEDS: VIT B12/Vit C/FA (Nephrovite) TABLET 1 TAB PO (08:51)
[2025-04-11] MEDS: carBAMazepine 100 MG CHEW PO (08:52)
[2025-04-11] MEDS: carVEDILOL 12.5 MG TABLET PO (08:52)
[2025-04-11] MEDS: DOCUSATE SOD 100 MG CAPSULE PO (08:52)
[2025-04-11] MEDS: SENNA TABLET 1 TAB PO (08:52)
[2025-04-11] MEDS: METOCLOPRAMIDE 5 MG TABLET PO (10:00)
--- NOTE | 2025-04-11 11:36 | ESDS_ITS ---
<Statement entered by Sheyla Martino DO - 04/12/25 07:50> I, Sehyla Martino DO, attest that I was physically present for the dumont portions of the service and evaluated the patient with the resident and I reviewed and discussed the case with the resident and agree with the resident's findings and plans of care as documented above Planned Discharge Date 04/11/25 DS: Providers Provider Date of admission: 04/08/25 15:13 Primary care physician: Simone Avila MD Admitting Provider: Layne Valerio MD Attending Provider on Admission: Sheyla Martino DO Consults: 04/08/25 14:45 Consult to Gastroenterology Stat Comment: Consulting Provider: Germaine Peterson 04/08/25 19:29 [facility] Referral - Knowledge Deficit Routine Comment: Positive screening for knowledge deficit needs. 04/10/25 15:26 Referral Hospice Stat Comment: Attending Provider on DC: Sheyla Martino DO Discharging Provider: Len Nuñez MD Anticipated date of discharge: 04/11/25 DS: Diagnosis Problem List Completed Was Problem List Reviewed/Reconciled?: Yes Hospital Course Hospital Course Hospital course: 59-year-old female on hospice with past medical history of developmental delay, asthma, hypertension, hyperlipidemia, type 2 diabetes, CKD seen by Dr. Mendez, chronic anemia, gout, GERD history of recurrent pneumonias and UTIs who presented to the ED due to fever chills. Per the caregiver patient was having fevers a couple days ago and hospice agency put the patient on Bactrim. Subsequently patient continued to have fevers and watery diarrhea (nonbloody) and went to her PCP was told her blood pressure was low and brought here to the ER. During hospitalization patient was treated with IV antibiotics, cultures were drawn and antibiotic therapy was narrowed at the time of discharge. Patient came with dark tarry stools per ED and had GI consulted and had EGD which showed normal esophagus. Colonoscopy was recommended to find source of bleeding. However, patient's sister and decision maker declined any further aggressive workup. Patient has otherwise been tolerating PO intake and has not had any episodes of emesis. At this time patient is medically stable for discharge. Follow up with primary care physician within 1 week of discharge. Follow up with hospice agency. Follow up with gastroenterology within 2 weeks of discharge. You have been prescribed cefuroxime antibiotic for 7 more days for UTI. Should any symptoms recur or worsen patient is instructed to return to the ED. Problem List: #Urinary tract infection #Diarrhea-resolved #Hypotension-resolved #Acute Kidney injury on CKD-resolved #?Gi bleed #Chronic normocytic anemia #Hypertension #Diabetes mellitus type 2 Case discussed with my attending Dr. Salena Nuñez MD PGY-1 Status at Discharge Functional status at discharge: uses cane/walker Overall status at discharge: patient is back to baseline Time Spent with Patient Time attestation: Total time spent providing and/or coordinating discharge services: Time spent: Greater than 30 minutes Exam Vital Signs Temp Pulse Resp BP Pulse Ox O2 Del Method O2 Flow Rate 98.0 F 74 18 166/96 H 95 Room Air 3 04/11/25 08:00 04/11/25 08:52 04/11/25 08:00 04/11/25 08:52 04/11/25 08:00 04/11/25 08:00 04/10/25 04:00 Narrative Exam Physical Exam GENERAL: NAD, AAOx3, developmentally delayed HEENT: Moist mucosa. Eyes open, symmetrical, & clear CARDIO: Heart RRR, no obvious murmurs PULM: Coughing, decreased breath sounds on the left GI: Abdomen soft, nondistended, no pain on palpation. BSx4 SKIN/MSK/EXT: No wounds/rashes/edema/amputations, no pain on palpation. Pedal pulses present B/L NEURO: AAOx3, no focal neuro deficits, able to move all 4 extremities Discharge Plan Plan Patient Disposition: Home w/HOSPICE Care Plan Goals: FOllow up with primary care physician within 1 week of discharge Follow up with hospice agency Follow up with gastroenterology within 2 weeks of discharge You have been prescribed cefuroxime antibiotic for 7 more days for UTI Should any symptoms recur or worsen patient is instructed to return to the ED. Prescriptions/Referrals Prescriptions/Med Rec: New cefuroxime axetil 500 mg tablet 500 mg PO BID 7 Days Qty: 14 0RF Continued allopurinol [Zyloprim] 100 MG tablet 100 mg PO QDAY Qty: 30 docusate sodium [Colace] 100 MG capsule 100 mg PO BID Qty: 60 montelukast [Singulair] 10 MG tablet 10 mg PO HS Qty: 30 quetiapine [Seroquel] 50 MG tablet 50 mg PO HS Qty: 30 Tradjenta 5 MG tablet 5 mg PO QAM Qty: 0 lovastatin 40 mg Tablet 40 mg PO QPM Janae-Steven 0.8 mg Tablet 1 tab PO QAM loratadine 10 mg Tablet 10 mg PO QDAY furosemide [Lasix] 20 mg Tablet 20 mg PO .QOD Rx Instructions: Q Other Day lisinopril 40 mg Tablet 40 mg PO QDAY ferrous sulfate 325 mg (65 mg iron) Tablet 325 mg PO HS carvedilol 12.5 mg tablet 12.5 mg PO BID Rx Instructions: Hold if BP<120/60 sennosides-docusate sodium 8.6-50 mg tablet 2 tab-cap PO QDAY Rx Instructions: senna plus ondansetron HCl 4 mg tablet 4 mg PO Q4H PRN (Reason: nausea and vomiting) Rx Instructions: New prescription 04/07/25 from hospice hyoscyamine sulfate [Hyosyne] 0.125 mg/mL drops 0.125 mg PO PRN Rx Instructions: under the tongue. Hospice. loperamide [Anti-Diarrheal (loperamide)] 2 mg capsule 2 mg PO Q6H PRN (Reason: diarrhea) lorazepam [Lorazepam Intensol] 2 mg/mL concentrate 0.5 mg PO Q4H PRN (Reason: agitation) Rx Instructions: Hospice. acetaminophen [Acetaminophen Extra Strength] 500 mg tablet 1,000 mg PO Q6H PRN (Reason: pain) Rx Instructions: body aches. Over the counter. cholecalciferol (vitamin D3) [Vitamin D3] 125 mcg (5,000 unit) Tablet 5,000 unit PO QDAY metformin 500 mg tablet 500 mg PO QPM pantoprazole 40 mg Tablet,Delayed Release (Dr/Ec) 40 mg PO QDAY Qty: 30 0RF amlodipine 10 mg tablet 10 mg PO DAILY carbamazepine 100 mg capsule, ER multiphase 12 hr 100 mg PO BID Probiotic Blend 2 billion cell-50 mg Capsule 1 cap PO HS Rx Instructions: give with meal/snack famotidine [Pepcid] 40 mg tablet 40 mg PO QDAY carvedilol 6.25 mg tablet 6.25 mg PO BID Qty: 60 0RF Rx Instructions: must administer with a meal/food metoclopramide HCl 10 mg tablet 10 mg PO HS 30 Days Qty: 30 3RF metoclopramide HCl 5 mg Tablet 5 mg PO QAM 30 Days Qty: 30 3RF Discontinued sulfamethoxazole-trimethoprim 800-160 mg tablet 1 tab PO BID Patient Comments: TAKE 1 TABLET BY MOUTH EVERY 12 HOURS FOR URINARY TRACT INFECTION Rx Instructions: for 5 days. Started 04/04/25 night time. Need 2 more doses to complete, tonight and tomorrow morning. Referrals: Simone Avila MD [Primary Care Provider] - Patient/Caregiver Discharge Instructions Discharge Activity: activity as tolerated Print Language: Telugu Stand Alone Forms: Nelly Award Info., Patient Portal Info Letter Discharge Order Discharge Orders: Discharge (Routine); Ordered 04/11/25 Ordered By: Len Nuñez Quality Discharge Quality Measures VTE prophylaxis
--- NOTE | 2025-04-11 16:28 | PC.SS ---
SS called Eric Atkinson, informed of discharge SS recvied a call from Nina with update on discharge; SS spoke LM for Nina, [facility], informing of discharge
== END 2025-04-11 13:47 | disposition hospice, home (50) | DRG 378 ==
LOC: SERX 14:58 → SERHOLD 15:39 → S3NX 18:57
PROVIDERS: Nurse Practitioner Primary Care; Specialist; Student in an Organized Health Care Education/Training Program; Admitting Provider Internal Medicine; Emergency Provider Emergency Medicine; PCP Family Medicine; Visit Provider Internal Medicine
PROC: 0DJ08ZZ Inspection of Upper Intestinal Tract, Via Natural or Artificial Opening Endoscopic (ICD-10-PCS; CPT 43239; principal; 2025-04-09 19:00)
DX: K29.71 Gastritis, unspecified, with bleeding (principal); N17.9 Acute kidney failure, unspecified; N39.0 Urinary tract infection, site not specified; Z16.19 Resistance to other specified beta lactam antibiotics; E87.6 Hypokalemia; N18.30 Chronic kidney disease, stage 3 unspecified; I12.9 Hypertensive chronic kidney disease with stage 1 through stage 4 chronic kidney disease, or unspecified chronic kidney disease; K21.9 Gastro-esophageal reflux disease without esophagitis; M10.9 Gout, unspecified; E11.22 Type 2 diabetes mellitus with diabetic chronic kidney disease; E78.5 Hyperlipidemia, unspecified; J45.909 Unspecified asthma, uncomplicated; I95.9 Hypotension, unspecified; D63.1 Anemia in chronic kidney disease; D50.0 Iron deficiency anemia secondary to blood loss (chronic); E86.0 Dehydration; I95.89 Other hypotension; Z51.5 Encounter for palliative care; R19.7 Diarrhea, unspecified; Z79.84 Long term (current) use of oral hypoglycemic drugs; Z86.16 Personal history of COVID-19; Z87.01 Personal history of pneumonia (recurrent); R62.50 Unspecified lack of expected normal physiological development in childhood; Z79.899 Other long term (current) drug therapy; B96.5 Pseudomonas (aeruginosa) (mallei) (pseudomallei) as the cause of diseases classified elsewhere
CPT/HCPCS: 36415; 71045; 80053; 81001; 82270; 82803; 83036; 83605; 83690; 83735; 83880; 84100; 84145; 84443; 84484; 85025; 85610; 85730; 86850; 86900; 86901; 87040; 87077; 87086; 87186; 87205; 87400; 87493; 87811; 92526; 92610; 93005; 93225; 96360; 96361; 96365; 96375; 99291; J0456; J0696; J1200; J1650; J2250; J2470; J2543; J3010; J7030; J7050; J7060; A9270

== ENCOUNTER → 2025-07-08 | Outpatient (CLI) | payer MEDICARE, MEDICAID, SELFPAY ==
[2025-07-08 13:33] LABS: Basophils # (Auto) 0.1 Thou/mm3 (0.0-0.2); Basophils % (Auto) 1 % (0-2.5); Eosinophils # (Auto) 0.3 Thou/mm3 (0.0-0.5); Eosinophils % (Auto) 4 % (0-10); Hematocrit 31.4 % (36.0-46.0); Hemoglobin 10.0 g/dL (12.0-16.0); Immature Granulocytes Auto 0.08 Thou/mm3 (0.00-0.00); Lymphocytes # (Auto) 1.7 Thou/mm3 (1.0-4.8); Lymphocytes % (Auto) 21 % (10-50); Mean Corpuscular HGB Conc 31.8 g/dl (31.0-37.0); Mean Corpuscular Hemoglobin 32.1 pg (25.0-35.0); Mean Corpuscular Volume 101 fL (80-100); Monocytes # (Auto) 1.0 Thou/mm3 (0.0-0.8); Monocytes % (Auto) 12 % (0-12); Neutrophils # (Auto) 5.0 Thou/mm3 (1.8-7.7); Neutrophils % (Auto) 62 % (37-80); Nucleated Red Blood Cell # 0.00 Thou/mm3 (0.00-0.00); Nucleated Red Blood Cell % 0 /100 WBC (0); Platelet Count 219 Thou/mm3 (140-440); RDW Standard Deviation 58.5 fL (36.4-46.3); Red Blood Count 3.12 Miln/mm3 (4.00-5.20); White Blood Count 8.2 Thou/mm3 (3.6-11.0)
[2025-07-08 14:01] LABS: Albumin, Serum 4.2 gm/dL (3.4-4.8); Anion Gap 12 (7-16); BUN/Creatinine Ratio 20 Ratio (12-20); Blood Urea Nitrogen 46 mg/dL (9-23); Calcium 10.5 mg/dL (8.3-10.6); Calcium (Corrected) 10.5 mg/dL (8.5-10.1); Carbon Dioxide 26.8 mMol/L (20.0-31.0); Chloride 106 mMol/L (98-107); Creatinine (Component) 2.3 mg/dL (0.6-1.3); Glucose 250 mg/dL (74-106); Osmolality,Calculated 308 (275-295); Phosphorous 4.5 mg/dL (2.4-5.1); Potassium 5.3 mMol/L (3.4-5.1); Sodium 145 mMol/L (136-145); eGFR 24 See Note
== END | disposition home or self-care (01) ==
PROVIDERS: PCP Family Medicine; Referring Provider Internal Medicine; Visit Provider Internal Medicine
DX: I12.9 Hypertensive chronic kidney disease with stage 1 through stage 4 chronic kidney disease, or unspecified chronic kidney disease (principal); E11.22 Type 2 diabetes mellitus with diabetic chronic kidney disease; N18.31 Chronic kidney disease, stage 3a; E11.21 Type 2 diabetes mellitus with diabetic nephropathy; R31.9 Hematuria, unspecified; R80.9 Proteinuria, unspecified
CPT/HCPCS: 36415; 80069; 85025

== ENCOUNTER 2025-07-22 12:43 | Emergency (ER) | payer MEDICARE, MEDICAID, SELFPAY ==
[2025-07-22 12:52] VITALS: PULSE 74; RESP 18; O2SAT 96
--- NOTE | 2025-07-22 12:54 | EKG_ITS ---
[facility] Test Date: 2025-07-22 Pat Name: FELIPE BILLY Department: Room: - Gender: Female [employer]: : 1965 Requested By: Love Malave Order Number: [id number] Reading MD: Love Malave Measurements Intervals [place] Rate: 56 P: 9 [place]: 160 QRS: 35 QRSD: 149 T: -20 QT: 394 QTc: 383 Interpretive Statements SINUS BRADYCARDIA WITH MARKED SINUS ARRHYTHMIA RIGHT BUNDLE BRANCH BLOCK [120+ ms QRS DURATION, UPRIGHT V1, 40+ ms S IN I/aVL/V4/V5/V6] MODERATE T-WAVE ABNORMALITY, CONSIDER ANTEROLATERAL ISCHEMIA [-0.1+ mV T-WAVE IN V3-V6] Compared to ECG 04/08/2025 13:52:10 Sinus rhythm no longer present First degree AV block no longer present T-wave abnormality still present Possible ischemia still present /store/S0/[id number]/ecg/[id number].pdf
--- NOTE | 2025-07-22 12:54 | XR_ITS ---
Examination: AP chest single view Technique one AP portable upright chest single view Date and time: July 22, 2025 1353 hours, comparison April 08, 2025 INDICATIONS: Fever shortness of breath beginning 3 days ago. FINDINGS: Diffuse opacity right lung consistent with pneumonia Mild associated heart failure with moderate enlargement left ventricle and prominent vascular congestion Prominent osteopenia IMPRESSION: Significant right lung pneumonia Mild associated heart failure
--- NOTE | 2025-07-22 12:55 | EDNOTE_ITS ---
<Statement entered by Linda Brown MD - 08/01/25 11:10> As co-signing physician, I was present and available for consult prn. I concur with the plan and care as documented by the midlevel provider. ED General RME/HPI General Chief complaint: Flu Like Symptoms Stated complaint: FLU LIKE SYMPTOMS Time Seen by Provider: 07/22/25 12:48 Arrival date/time: 07/22/25 12:43 RME / HPI RME / HPI narrative: 59-year-old female patient with significant history of hypertension diabetes mellitus, developmental delay, was [facility], for evaluation regarding flulike symptoms. Patient had a flu shot yesterday, and today was noted to have flulike symptoms. Developed fever, cough, congestion, severity mild. Patient is denying any chest pain on coughing. denies any abdominal pain. Denies any vomiting diarrhea or constipation. Denies any other complaints no medication was taken prior to arrival. Related Data Home Medications ?Medication ?Instructions ?Recorded ?Confirmed allopurinol 100 mg tablet 100 mg PO QDAY gout #30 tabs 03/31/14 04/08/25 (Zyloprim) docusate sodium 100 mg capsule 100 mg PO BID #60 caps 03/31/14 04/08/25 (Colace) montelukast 10 mg tablet 10 mg PO HS #30 tabs 4 04/08/25 (Singulair) quetiapine 50 mg tablet (Seroquel) 50 mg PO HS #30 tab s 03/31/14 04/08/25 linagliptin 5 mg tablet (Tradjenta) 5 mg PO QAM ##0 04/08/25 loratadine 10 mg tablet 10 mg PO QDAY 04/17/1904/08 lovastatin 40 mg tablet 40 mg PO QPM 04/17/19 vitamin B complex-vitamin C-folic 1 tab PO QAM 9 04/08/25 acid 0.8 mg tablet (Janae-Steven) cholecalciferol (vitamin D3) 125 5,000 unit PO QDAY 04/08/25 mcg (5,000 unit) tablet (Vitamin D3) furosemide 20 mg tablet (Lasix) 20 mg PO .QOD water re tention,feet 11/03/23 04/08/25 swelling ferrous sulfate 325 mg (65 mg 325 mg PO HS anemia 10/1904/08/25 iron) tablet lisinopril 40 mg tablet 40 mg PO QDAY 11/04/2304/08 metformin 500 mg tablet 500 mg PO QPM 11/19/2304/08 L.acidophil-L.casei-B.bifid-B.longum-FOS 1 cap PO HS 0 03/23/24 04/08/25 2 billion cell-50 mg capsule (Probiotic Blend) amlodipine 10 mg tablet 10 mg PO DAILY 03/23/2403/20 carbamazepine 100 mg 100 mg PO BID behaviors 04/1104/08/25 capsule,extended release [id number] famotidine 40 mg tablet (Pepcid) 40 mg PO QDAY 4 04/08/25 acetaminophen 500 mg tablet 1,000 mg PO Q6H PRN pain 0 04/08/25 04/08/25 (Acetaminophen Extra Strength) carvedilol 12.5 mg tablet 12.5 mg PO BID 04/08/2503/20 hyoscyamine sulfate 0.125 mg/mL 0.125 mg PO PRN secret ions 04/08/25 04/08/25 oral drops (Hyosyne) loperamide 2 mg capsule 2 mg PO Q6H PRN diarrhea 04/08/25 (Anti-Diarrheal (loperamide)) lorazepam 2 mg/mL oral concentrate 0.5 mg PO Q4H PRN a gitation 04/08/25 04/08/25 (Lorazepam Intensol) ondansetron HCl 4 mg tablet 4 mg PO Q4H PRN nausea and vomiting 04/08/25 04/08/25 sennosides 8.6 mg-docusate sodium 2 tab-cap PO QDAY 04/08/25 50 mg tablet Previous Rx's ?Medication ?Instructions ?Recorded pantoprazole 40 mg tablet,delayed 40 mg PO QDAY reflux #30 tabs 11/20/23 release carvedilol 6.25 mg tablet 6.25 mg PO BID #60 tabs 04/11 metoclopramide HCl 10 mg tablet 10 mg PO HS 30 days #3 0 tabs 04/17/24 metoclopramide HCl 5 mg tablet 5 mg PO QAM 30 days #30 tabs 04/17/24 amoxicillin 875 mg-potassium 1 tab PO BID #14 tabs 02/10 clavulanate 125 mg tablet doxycycline monohydrate 100 mg 100 mg PO BID #14 caps 07/22/25 capsule ibuprofen 800 mg tablet 800 mg PO Q8H PRN pain #30 t abs 07/22/25 Allergies Allergy/AdvReac Type Severity Reaction Status Date / Time No Known Allergies Allergy Verified 04/08/25 12:16 Review of Systems Review of Systems Narrative Review of Systems: Review of system reviewed and within normal limits except mentioned in HPI ED Exam Narrative Physical exam: VITAL SIGNS: Reviewed. GENERAL APPEARANCE: Alert and interactive, follows commands, no acute distress, HEAD AND FACE: Non-traumatic. ENT: PERRL, pink conjunctivitis, eyelid no trauma, Mucous membrane moist. NECK: Supple, nontender, no nuchal rigidity. CHEST: No tenderness, no crepitus, no paradoxical movement, no retractions. LUNGS: Clear, well ventilated, symmetric, no rales, no wheezing, no ronchi, no stridor, good breath sounds bilaterally. HEART: Regular rate, regular rhythm, no murmur, no gallops. ABDOMEN: Soft, positive bowel sounds, nondistended, no guarding, nontender, no rebound, no masses, RECTAL: Deferred. GENITAL: Deferred. NEUROLOGICAL: Gross motor function intact sensory function intact, Appropriate for age. MUSCULOSKELETAL: low back nontender, full range of motion. EXTREMITIES: Nontender, full range of motion. SKIN: Color pink, dry, no rash, no lacerations, no abrasions, no contusions. LYMPHATICS: Deferred. Course Quality Measures none Orders Category Date Time Status Bedside COVID-19 Antigen Test NOW Care 07/22/25 12:54 Active Bedside Influenza A&B Antigen Test NOW Care 07/22/25 12:55 Completed EKG (ED ONLY) *Do not use* NOW Care 07/22/25 12:55 Completed EKG (ED Only) Stat Exams 07/22/25 12:54 Draft XR chest 1V Stat Exams 07/22/25 12:54 Completed B-Type Natriuretic Peptide Stat Lab 07/22/25 13:06 Completed CBC Stat Lab 07/22/25 13:06 Completed Comprehensive Metabolic Panel Stat Lab 07/22/25 13:06 Completed Partial Thromboplastin Time Stat Lab 07/22/25 13:06 Completed Urinalysis, C/S if Indicated Stat Lab 07/22/25 15:37 Completed Urine Culture Stat Lab 07/22/25 15:37 Received Acetaminophen Tab [Tylenol ES Tab] Med 07/22/25 12:54 Discontinued 1,000 mg PO X1 ONE Amoxicillin/Pot Clav 875 [Augmentin 875] Med 07/22/25 16:23 Discontinued 1 tab PO X1 ONE Doxycycline [Vibramycin] Med 07/22/25 16:23 Discontinued 100 mg PO X1 ONE Vital Signs Vital signs: Vital Signs Temperature 98.7 F 07/22/25 14:17 Pulse Rate 63 07/22/25 14:17 Respiratory Rate 18 07/22/25 14:17 Blood Pressure 128/61 07/22/25 14:17 Pulse Oximetry (%) 95 07/22/25 14:17 Oxygen Delivery Method Room Air 07/22/25 14:17 Discharge Plan Plan Patient Disposition: HOME (Self Care) Discharge Disposition comment: Stable Prescriptions/Referrals Prescriptions/Med Rec: New doxycycline monohydrate 100 mg capsule 100 mg PO BID Qty: 14 0RF amoxicillin-pot clavulanate 875-125 mg tablet 1 tab PO BID Qty: 14 0RF ibuprofen 800 mg tablet 800 mg PO Q8H PRN (Reason: pain) Qty: 30 0RF No Action allopurinol [Zyloprim] 100 MG tablet 100 mg PO QDAY Qty: 30 docusate sodium [Colace] 100 MG capsule 100 mg PO BID Qty: 60 montelukast [Singulair] 10 MG tablet 10 mg PO HS Qty: 30 quetiapine [Seroquel] 50 MG tablet 50 mg PO HS Qty: 30 Tradjenta 5 MG tablet 5 mg PO QAM Qty: 0 lovastatin 40 mg Tablet 40 mg PO QPM Janae-Steven 0.8 mg Tablet 1 tab PO QAM loratadine 10 mg Tablet 10 mg PO QDAY furosemide [Lasix] 20 mg Tablet 20 mg PO .QOD Rx Instructions: Q Other Day lisinopril 40 mg Tablet 40 mg PO QDAY ferrous sulfate 325 mg (65 mg iron) Tablet 325 mg PO HS carvedilol 12.5 mg tablet 12.5 mg PO BID Rx Instructions: Hold if BP<120/60 sennosides-docusate sodium 8.6-50 mg tablet 2 tab-cap PO QDAY Rx Instructions: senna plus ondansetron HCl 4 mg tablet 4 mg PO Q4H PRN (Reason: nausea and vomiting) Rx Instructions: New prescription 04/07/25 from hospice hyoscyamine sulfate [Hyosyne] 0.125 mg/mL drops 0.125 mg PO PRN Rx Instructions: under the tongue. Hospice. loperamide [Anti-Diarrheal (loperamide)] 2 mg capsule 2 mg PO Q6H PRN (Reason: diarrhea) lorazepam [Lorazepam Intensol] 2 mg/mL concentrate 0.5 mg PO Q4H PRN (Reason: agitation) Rx Instructions: Hospice. acetaminophen [Acetaminophen Extra Strength] 500 mg tablet 1,000 mg PO Q6H PRN (Reason: pain) Rx Instructions: body aches. Over the counter. cholecalciferol (vitamin D3) [Vitamin D3] 125 mcg (5,000 unit) Tablet 5,000 unit PO QDAY metformin 500 mg tablet 500 mg PO QPM pantoprazole 40 mg Tablet,Delayed Release (Dr/Ec) 40 mg PO QDAY Qty: 30 0RF amlodipine 10 mg tablet 10 mg PO DAILY carbamazepine 100 mg capsule, ER multiphase 12 hr 100 mg PO BID Probiotic Blend 2 billion cell-50 mg Capsule 1 cap PO HS Rx Instructions: give with meal/snack famotidine [Pepcid] 40 mg tablet 40 mg PO QDAY carvedilol 6.25 mg tablet 6.25 mg PO BID Qty: 60 0RF Rx Instructions: must administer with a meal/food metoclopramide HCl 10 mg tablet 10 mg PO HS 30 Days Qty: 30 3RF metoclopramide HCl 5 mg Tablet 5 mg PO QAM 30 Days Qty: 30 3RF Referrals: Eden Avila MD [Primary Care Provider] - In 1 week Problem List Clinical Impression: Pneumonia, UTI (urinary tract infection) Patient/Caregiver Discharge Instructions Discharge Activity: activity as tolerated Education Materials: ED Pneumonia (Adult) Additional Instructions: Thank you for the opportunity for serving you today. You are stable for discharged . You are advised to: Follow-up with your PCP in 1 to 2 days Return to ED for worsening of symptoms, vomiting, shortness of breath, hypoxia Increase oral fluids Take medication as prescribed Print Language: Maltese Stand Alone Forms: Nelly Award Info., Patient Portal Info Letter VIRY/CHAO Supervising Physician MARY JANE Supervising Physician: MD Jong [facility] Narrative [facility] hospital course: 59-year-old female patient with significant history of hypertension diabetes mellitus, developmental delay, [facility], for evaluation regarding flulike symptoms. Patient had a flu shot yesterday, and today was noted to have flulike symptoms. Developed fever, cough, congestion, severity mild. Patient is denying any chest pain on coughing. denies any abdominal pain. Denies any vomiting diarrhea or constipation. Denies any other complaints no medication was taken prior to arrival EKG showed sinus bradycardia, ventricular rate of 56 bpm, MO at about 160 MS, no ST segment elevation depression noted. Patient's laboratory workup is significant for slight leukocytosis of 13,000, creatinine of 2.0 BUN of 47, which is her baseline. Urinalysis positive for UTI. Chest x-ray showed pneumonia. Currently patient was noted to be satting 95% on room air. Afebrile. No sign of shortness of breath. Patient received Augmentin and doxycycline in the ED. Plan of care discussed with the family who agrees and happy to be discharge home. Medication Administration(s) Medication Administration History Discontinued Medications Acetaminophen (Acetaminophen 500 Mg Tablet) 1,000 mg PO X1 ONE Stop: 07/22/25 12:55 Last Admin: 07/22/25 14:31 Dose: 1,000 mg Documented By: MO Amoxicillin/Clavulanate Potassium (Amoxicillin/Pot Clav 875 Tablet) 1 tab PO X1 ONE Stop: 07/22/25 16:24 Doxycycline Hyclate (Doxycycline 100 Mg Tablet) 100 mg PO X1 ONE Stop: 07/22/25 16:24
[2025-07-22 13:13] LABS: Basophils # (Auto) 0.0 Thou/mm3 (0.0-0.2); Basophils % (Auto) 0 % (0-2.5); Eosinophils # (Auto) 0.2 Thou/mm3 (0.0-0.5); Eosinophils % (Auto) 2 % (0-10); Hematocrit 31.1 % (36.0-46.0); Hemoglobin 10.1 g/dL (12.0-16.0); Immature Granulocytes Auto 0.14 Thou/mm3 (0.00-0.00); Lymphocytes # (Auto) 1.2 Thou/mm3 (1.0-4.8); Lymphocytes % (Auto) 9 % (10-50); Mean Corpuscular HGB Conc 32.5 g/dl (31.0-37.0); Mean Corpuscular Hemoglobin 31.5 pg (25.0-35.0); Mean Corpuscular Volume 97 fL (80-100); Monocytes # (Auto) 1.7 Thou/mm3 (0.0-0.8); Monocytes % (Auto) 13 % (0-12); Neutrophils # (Auto) 9.7 Thou/mm3 (1.8-7.7); Neutrophils % (Auto) 75 % (37-80); Nucleated Red Blood Cell # 0.00 Thou/mm3 (0.00-0.00); Nucleated Red Blood Cell % 0 /100 WBC (0); Platelet Count 184 Thou/mm3 (140-440); RDW Standard Deviation 56.3 fL (36.4-46.3); Red Blood Count 3.21 Miln/mm3 (4.00-5.20); White Blood Count 13.0 Thou/mm3 (3.6-11.0)
[2025-07-22 13:41] LABS: B-Type Natriuretic Peptide 45 pg/mL (0-100)
[2025-07-22 13:50] LABS: Alanine Aminotransferase < 7 U/L (10-49); Albumin, Serum 4.4 gm/dL (3.4-4.8); Albumin/Globulin Ratio 1.6 (1.2-2.2); Alkaline Phosphatase 60 U/L (46-116); Anion Gap 12 (7-16); Aspartate Amino Transferase 11 U/L (0-34); BUN/Creatinine Ratio 24 Ratio (12-20); Bilirubin,Total 0.2 mg/dL (0.3-1.2); Blood Urea Nitrogen 47 mg/dL (9-23); Calcium 10.7 mg/dL (8.3-10.6); Calcium (Corrected) 10.7 mg/dL (8.5-10.1); Carbon Dioxide 22.7 mMol/L (20.0-31.0); Chloride 111 mMol/L (98-107); Creatinine (Component) 2.0 mg/dL (0.6-1.3); Globulin 2.7 gm/dL (2.3-3.5); Glucose 140 mg/dL (74-106); Osmolality,Calculated 304 (275-295); Potassium 4.7 mMol/L (3.4-5.1); Sodium 146 mMol/L (136-145); Total Protein 7.1 gm/dL (5.7-8.2); eGFR 28 See Note
[2025-07-22 14:17] VITALS: BP 128/61; PULSE 63; RESP 18; TEMP 37.1; O2SAT 95
[2025-07-22] MEDS: ACETAMINOPHEN 500 MG TABLET 1000 MG PO (14:31)
[2025-07-22 14:46] LABS: Partial Thromboplastin Time 21.9 Seconds (22.0-36.0)
[2025-07-22 15:42] LABS: Collection Type, Urine Clean Catch
[2025-07-22 16:11] LABS: Bacteria,Urine 4+; Bilirubin,Urine Negative (Negative); Blood,Urine Negative (Negative); Color,Urine Yellow (Lt Yel-Yel); Glucose, Urine Negative (Negative); Hyaline Casts,Urine < 1 /hpf (0-1); Ketones,Urine Negative (Negative); Leukocyte Esterase,Urine Positive (Negative); Nitrite,Urine Negative (Negative); PH,Urine 5.5 (5.0-7.0); Protein,Urine 2+ (Neg - Trace); RBC,Urine 4 /hpf (0-3); Specific Gravity,Urine 1.016 (1.001-1.035); Squamous Epithelial Cell,Urine 3 /hpf (0-5); Urobilinogen,Urine Negative mg/dL (0.0-1.0); WBC,Urine 135 /hpf (0-5)
[2025-07-22 16:22] LABS: Clarity,Urine Hazy (Clear/Hazy); Culture Indicated,Urine Yes
[2025-07-22] MEDS: AMOXICILLIN/POT CLAV 875 TABLET 1 TAB PO (16:31)
[2025-07-22] MEDS: DOXYCYCLINE 100 MG TABLET PO (16:31)
[2025-07-22 16:35] VITALS: BP 123/80; PULSE 85; RESP 18; TEMP 36.8; O2SAT 98
== END 2025-07-22 16:37 | disposition home or self-care (01) ==
PROVIDERS: Nurse Practitioner Family; Emergency Provider Emergency Medicine; PCP Family Medicine
DX: J18.9 Pneumonia, unspecified organism (principal); N39.0 Urinary tract infection, site not specified; I10 Essential (primary) hypertension; E11.9 Type 2 diabetes mellitus without complications
CPT/HCPCS: 36415; 71045; 80053; 81001; 83880; 85025; 85730; 87077; 87086; 87186; 87400; 87811; 93005; 99284; A9270

== ENCOUNTER → 2025-08-11 | Outpatient (CLI) | payer MEDICARE, MEDICAID, SELFPAY ==
[2025-08-11 12:48] LABS: Misc Send Out* See Sep Rpt
[2025-08-11 14:00] LABS: Basophils # (Auto) 0.0 Thou/mm3 (0.0-0.2); Basophils % (Auto) 1 % (0-2.5); Eosinophils # (Auto) 0.2 Thou/mm3 (0.0-0.5); Eosinophils % (Auto) 4 % (0-10); Hematocrit 28.8 % (36.0-46.0); Hemoglobin 9.3 g/dL (12.0-16.0); Immature Granulocytes Auto 0.07 Thou/mm3 (0.00-0.00); Lymphocytes # (Auto) 1.4 Thou/mm3 (1.0-4.8); Lymphocytes % (Auto) 25 % (10-50); Mean Corpuscular HGB Conc 32.3 g/dl (31.0-37.0); Mean Corpuscular Hemoglobin 32.1 pg (25.0-35.0); Mean Corpuscular Volume 99 fL (80-100); Monocytes # (Auto) 0.8 Thou/mm3 (0.0-0.8); Monocytes % (Auto) 15 % (0-12); Neutrophils # (Auto) 2.9 Thou/mm3 (1.8-7.7); Neutrophils % (Auto) 54 % (37-80); Nucleated Red Blood Cell # 0.00 Thou/mm3 (0.00-0.00); Nucleated Red Blood Cell % 0 /100 WBC (0); Platelet Count 193 Thou/mm3 (140-440); RDW Standard Deviation 59.9 fL (36.4-46.3); Red Blood Count 2.90 Miln/mm3 (4.00-5.20); White Blood Count 5.5 Thou/mm3 (3.6-11.0)
[2025-08-11 14:13] LABS: Ferritin 85 ng/mL (7.3-270.7); Iron 93 mcg/dL (50-170); Percent Iron Saturation 37 % (20-55); Total Iron Binding Capacity 247 mcg/dL (250-425); Unsaturated Iron Binding 154 (225-295)
[2025-08-11 14:17] LABS: Albumin, Serum 4.1 gm/dL (3.4-4.8); Anion Gap 14 (7-16); BUN/Creatinine Ratio 17 Ratio (12-20); Blood Urea Nitrogen 37 mg/dL (9-23); Calcium 9.9 mg/dL (8.3-10.6); Calcium (Corrected) 9.9 mg/dL (8.5-10.1); Carbon Dioxide 21.8 mMol/L (20.0-31.0); Chloride 112 mMol/L (98-107); Creatinine (Component) 2.2 mg/dL (0.6-1.3); Glucose 252 mg/dL (74-106); Osmolality,Calculated 311 (275-295); Phosphorous 4.5 mg/dL (2.4-5.1); Potassium 4.3 mMol/L (3.4-5.1); Sodium 148 mMol/L (136-145); eGFR 25 See Note
== END | disposition home or self-care (01) ==
LOC: COPL 12:29
PROVIDERS: PCP Family Medicine; Referring Provider Internal Medicine; Visit Provider Internal Medicine
DX: I12.9 Hypertensive chronic kidney disease with stage 1 through stage 4 chronic kidney disease, or unspecified chronic kidney disease (principal); E11.22 Type 2 diabetes mellitus with diabetic chronic kidney disease; N18.31 Chronic kidney disease, stage 3a; E11.21 Type 2 diabetes mellitus with diabetic nephropathy; R31.9 Hematuria, unspecified; R80.9 Proteinuria, unspecified
CPT/HCPCS: 36415; 80069; 82570; 82728; 83540; 83550; 84156; 85025

== ENCOUNTER → 2025-08-12 | Outpatient (CLI) | payer MEDICARE, MEDICAID, SELFPAY ==
[2025-08-12 11:41] LABS: Creatinine,Random Urine 48 mg/dL (30-125); Protein Total, Random Urine 101 mg/dL (1-14)
== END | disposition home or self-care (01) ==
LOC: SLDO 10:38
PROVIDERS: Referring Provider Internal Medicine; Visit Provider Internal Medicine
DX: I12.9 Hypertensive chronic kidney disease with stage 1 through stage 4 chronic kidney disease, or unspecified chronic kidney disease (principal); E11.22 Type 2 diabetes mellitus with diabetic chronic kidney disease; N18.31 Chronic kidney disease, stage 3a; E11.21 Type 2 diabetes mellitus with diabetic nephropathy; R31.9 Hematuria, unspecified; R80.9 Proteinuria, unspecified
CPT/HCPCS: 82570; 84156

== ENCOUNTER → 2025-09-15 | Outpatient (CLI) | payer MEDICARE, MEDICAID, SELFPAY ==
[2025-09-15 13:19] LABS: Basophils # (Auto) 0.0 Thou/mm3 (0.0-0.2); Basophils % (Auto) 1 % (0-2.5); Eosinophils # (Auto) 0.2 Thou/mm3 (0.0-0.5); Eosinophils % (Auto) 4 % (0-10); Hematocrit 30.2 % (36.0-46.0); Hemoglobin 9.5 g/dL (12.0-16.0); Immature Granulocytes Auto 0.08 Thou/mm3 (0.00-0.00); Lymphocytes # (Auto) 1.7 Thou/mm3 (1.0-4.8); Lymphocytes % (Auto) 26 % (10-50); Mean Corpuscular HGB Conc 31.5 g/dl (31.0-37.0); Mean Corpuscular Hemoglobin 32.2 pg (25.0-35.0); Mean Corpuscular Volume 102 fL (80-100); Monocytes # (Auto) 0.7 Thou/mm3 (0.0-0.8); Monocytes % (Auto) 12 % (0-12); Neutrophils # (Auto) 3.6 Thou/mm3 (1.8-7.7); Neutrophils % (Auto) 57 % (37-80); Nucleated Red Blood Cell # 0.00 Thou/mm3 (0.00-0.00); Nucleated Red Blood Cell % 0 /100 WBC (0); Platelet Count 210 Thou/mm3 (140-440); RDW Standard Deviation 58.4 fL (36.4-46.3); Red Blood Count 2.95 Miln/mm3 (4.00-5.20); White Blood Count 6.3 Thou/mm3 (3.6-11.0)
[2025-09-15 13:42] LABS: Albumin, Serum 4.4 gm/dL (3.4-4.8); Anion Gap 12 (7-16); BUN/Creatinine Ratio 22 Ratio (12-20); Blood Urea Nitrogen 43 mg/dL (9-23); Calcium 9.5 mg/dL (8.3-10.6); Calcium (Corrected) 9.5 mg/dL (8.5-10.1); Carbon Dioxide 23.5 mMol/L (20.0-31.0); Chloride 110 mMol/L (98-107); Creatinine (Component) 2.0 mg/dL (0.6-1.3); Glucose 187 mg/dL (74-106); Osmolality,Calculated 304 (275-295); Phosphorous 4.1 mg/dL (2.4-5.1); Potassium 4.5 mMol/L (3.4-5.1); Sodium 145 mMol/L (136-145); eGFR 28 See Note
== END | disposition home or self-care (01) ==
LOC: COPL 11:57
PROVIDERS: Referring Provider Internal Medicine; Visit Provider Internal Medicine
DX: I12.9 Hypertensive chronic kidney disease with stage 1 through stage 4 chronic kidney disease, or unspecified chronic kidney disease (principal); E11.22 Type 2 diabetes mellitus with diabetic chronic kidney disease; N18.31 Chronic kidney disease, stage 3a; E11.21 Type 2 diabetes mellitus with diabetic nephropathy; R31.9 Hematuria, unspecified; R80.9 Proteinuria, unspecified
CPT/HCPCS: 36415; 80069; 85025

== ENCOUNTER → 2025-09-23 | Outpatient (CLI) | payer MEDICARE, MEDICAID, SELFPAY ==
[2025-09-23 12:10] LABS: Basophils # (Auto) 0.0 Thou/mm3 (0.0-0.2); Basophils % (Auto) 0 % (0-2.5); Eosinophils # (Auto) 0.2 Thou/mm3 (0.0-0.5); Eosinophils % (Auto) 3 % (0-10); Hematocrit 29.3 % (36.0-46.0); Hemoglobin 9.5 g/dL (12.0-16.0); Immature Granulocytes Auto 0.06 Thou/mm3 (0.00-0.00); Lymphocytes # (Auto) 1.9 Thou/mm3 (1.0-4.8); Lymphocytes % (Auto) 27 % (10-50); Mean Corpuscular HGB Conc 32.4 g/dl (31.0-37.0); Mean Corpuscular Hemoglobin 33.1 pg (25.0-35.0); Mean Corpuscular Volume 102 fL (80-100); Monocytes # (Auto) 0.8 Thou/mm3 (0.0-0.8); Monocytes % (Auto) 11 % (0-12); Neutrophils # (Auto) 4.1 Thou/mm3 (1.8-7.7); Neutrophils % (Auto) 58 % (37-80); Nucleated Red Blood Cell # 0.00 Thou/mm3 (0.00-0.00); Nucleated Red Blood Cell % 0 /100 WBC (0); Platelet Count 183 Thou/mm3 (140-440); RDW Standard Deviation 57.7 fL (36.4-46.3); Red Blood Count 2.87 Miln/mm3 (4.00-5.20); White Blood Count 7.1 Thou/mm3 (3.6-11.0)
[2025-09-23 12:27] LABS: Albumin, Serum 4.4 gm/dL (3.4-4.8); Anion Gap 10 (7-16); BUN/Creatinine Ratio 28 Ratio (12-20); Blood Urea Nitrogen 53 mg/dL (9-23); Calcium 9.5 mg/dL (8.3-10.6); Calcium (Corrected) 9.5 mg/dL (8.5-10.1); Carbon Dioxide 22.7 mMol/L (20.0-31.0); Chloride 112 mMol/L (98-107); Creatinine (Component) 1.9 mg/dL (0.6-1.3); Glucose 201 mg/dL (74-106); Osmolality,Calculated 309 (275-295); Phosphorous 4.6 mg/dL (2.4-5.1); Potassium 5.2 mMol/L (3.4-5.1); Sodium 145 mMol/L (136-145); eGFR 29 See Note
[2025-09-23 12:28] LABS: Iron 131 mcg/dL (50-170); Percent Iron Saturation 52 % (20-55); Total Iron Binding Capacity 248 mcg/dL (250-425); Unsaturated Iron Binding 117 (225-295)
[2025-09-23 12:31] LABS: Vitamin B12 488 pg/mL (211-911)
== END | disposition home or self-care (01) ==
LOC: COPL 11:38
PROVIDERS: PCP Family Medicine; Referring Provider Internal Medicine; Visit Provider Internal Medicine
DX: I12.9 Hypertensive chronic kidney disease with stage 1 through stage 4 chronic kidney disease, or unspecified chronic kidney disease (principal); E11.22 Type 2 diabetes mellitus with diabetic chronic kidney disease; N18.31 Chronic kidney disease, stage 3a; E11.21 Type 2 diabetes mellitus with diabetic nephropathy; R31.9 Hematuria, unspecified; R80.9 Proteinuria, unspecified
CPT/HCPCS: 36415; 80069; 82607; 83540; 83550; 85025

== ENCOUNTER → 2025-11-02 | Outpatient (CLI) | payer MEDICARE, MEDICAID, SELFPAY ==
[2025-11-02 13:15] LABS: Basophils # (Auto) 0.0 Thou/mm3 (0.0-0.2); Basophils % (Auto) 1 % (0-2.5); Eosinophils # (Auto) 0.2 Thou/mm3 (0.0-0.5); Eosinophils % (Auto) 3 % (0-10); Hematocrit 30.9 % (36.0-46.0); Hemoglobin 9.8 g/dL (12.0-16.0); Immature Granulocytes Auto 0.04 Thou/mm3 (0.00-0.00); Lymphocytes # (Auto) 1.3 Thou/mm3 (1.0-4.8); Lymphocytes % (Auto) 20 % (10-50); Mean Corpuscular HGB Conc 31.7 g/dl (31.0-37.0); Mean Corpuscular Hemoglobin 31.6 pg (25.0-35.0); Mean Corpuscular Volume 100 fL (80-100); Monocytes # (Auto) 0.8 Thou/mm3 (0.0-0.8); Monocytes % (Auto) 12 % (0-12); Neutrophils # (Auto) 4.1 Thou/mm3 (1.8-7.7); Neutrophils % (Auto) 64 % (37-80); Nucleated Red Blood Cell # 0.00 Thou/mm3 (0.00-0.00); Nucleated Red Blood Cell % 0 /100 WBC (0); Platelet Count 186 Thou/mm3 (140-440); RDW Standard Deviation 54.4 fL (36.4-46.3); Red Blood Count 3.10 Miln/mm3 (4.00-5.20); White Blood Count 6.4 Thou/mm3 (3.6-11.0)
[2025-11-02 13:24] LABS: Albumin, Serum 4.4 gm/dL (3.4-4.8); Anion Gap 11 (7-16); BUN/Creatinine Ratio 21 Ratio (12-20); Blood Urea Nitrogen 38 mg/dL (9-23); Calcium 10.1 mg/dL (8.3-10.6); Calcium (Corrected) 10.1 mg/dL (8.5-10.1); Carbon Dioxide 25.9 mMol/L (20.0-31.0); Chloride 107 mMol/L (98-107); Creatinine (Component) 1.8 mg/dL (0.6-1.3); Glucose 129 mg/dL (74-106); Osmolality,Calculated 297 (275-295); Phosphorous 4.0 mg/dL (2.4-5.1); Potassium 4.1 mMol/L (3.4-5.1); Sodium 144 mMol/L (136-145); eGFR 31 See Note
[2025-11-02 13:35] LABS: Iron 95 mcg/dL (50-170); Percent Iron Saturation 39 % (20-55); Total Iron Binding Capacity 240 mcg/dL (250-425); Unsaturated Iron Binding 145 (225-295)
== END | disposition home or self-care (01) ==
PROVIDERS: PCP Internal Medicine; Referring Provider Internal Medicine; Visit Provider Internal Medicine
DX: I12.9 Hypertensive chronic kidney disease with stage 1 through stage 4 chronic kidney disease, or unspecified chronic kidney disease (principal); E11.22 Type 2 diabetes mellitus with diabetic chronic kidney disease; N18.31 Chronic kidney disease, stage 3a; D63.1 Anemia in chronic kidney disease; E11.21 Type 2 diabetes mellitus with diabetic nephropathy; R31.9 Hematuria, unspecified; R80.9 Proteinuria, unspecified
CPT/HCPCS: 36415; 80069; 83540; 83550; 85025